=== PATIENT | male | born 1950 | race Caucasian/White ===

== ENCOUNTER 2016-05-02 16:43 | Emergency (ER) | payer SELFPAY ==
[~2016-05-02] VITALS: Ht 182.9 cm; Wt 77.1 kg
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
[2016-05-02] MEDS ORDERED: OXYCODONE/APAP 5/325 TABLET. PO ONE (17:45)
[2016-05-02] MEDS ORDERED: ORPHENADRINE CITRATE 60 MG/2 ML VIAL. IM ONE (17:45)
[2016-05-02] MEDS ORDERED: OXYC-323 PO (18:36)
[2016-05-02] MEDS ORDERED: CYCL10TA2 PO (18:36)
[2016-05-02 19:01] VITALS: BP 150/80
--- NOTE | 2016-05-03 06:53 | EKG ---
[facility] [address] [place] [address] Test Date: 2016-05-02 Test Time: 16:57:22 Pat Name: MICHAEL WHITTEN Department: Room: Gender: M Travel Director: : 1950 Requested By: PARTH HANSON Order Number: [id number] Reading MD: Measurements Intervals [place] Rate: 76 P: 32 DC: 156 QRS: 11 QRSD: 98 T: 42 QT: 362 QTc: 411 Interpretive Statements SINUS RHYTHM QRS(T) CONTOUR ABNORMALITY CONSISTENT WITH INFERIOR INFARCT PROBABLY OLD ABNORMAL ECG RI6.01 No previous ECG available for comparison
== END 2016-05-02 19:00 | disposition home or self-care (01) ==
LOC: ER 16:43
DX: M54.5 Low back pain (principal); M19.90 Unspecified osteoarthritis, unspecified site; G89.29 Other chronic pain; E78.00 Pure hypercholesterolemia, unspecified; M41.9 Scoliosis, unspecified
CPT/HCPCS: 93005; 96372; 99283; J2360; 90471

== ENCOUNTER 2016-05-23 14:16 | Emergency (ER) | payer SELFPAY ==
[~2016-05-23] VITALS: Ht 182.9 cm; Wt 79.4 kg
[~2016-05-23 14:16] MED LIST: CYCL10TA2 PO; OXYC-323 PO
[2016-05-23 14:53] LABS: BASO # 0.1 x10^3/uL (0.0-0.2); BASO % 1 % (0-3); EOS % 2 % (0-3); HEMATOCRIT 39.8 % (39.0-53.0); HEMOGLOBIN 13.8 g/dL (13.0-17.5); LYMPH # 1.5 x10^3/uL (1.0-4.8); LYMPH % 14 % (24-48); MEAN CORPUSCULAR HEMOGLOBIN 33 pg (25-35); MEAN CORPUSCULAR HGB CONC 35 g/dL (31-37); MEAN CORPUSCULAR VOLUME 96 fL (79-100); MONO % 7 % (0-9); NEUT % 77 % (31-73); PLATELET COUNT 204 x10^3/uL (140-400); RED BLOOD COUNT 4.14 x10^6/uL (4.30-5.70); RED CELL DISTRIBUTION WIDTH 13.3 % (11.5-14.5); WHITE BLOOD COUNT 10.7 x10^3/uL (4.0-11.0)
[2016-05-23 15:02] LABS: CALCIUM 8.5 mg/dL (8.5-10.1); GFR 75.5; POTASSIUM 3.8 mmol/L (3.5-5.1)
[2016-05-23 15:03] LABS: PROTHROMBIN TIME PATIENT 12.9 SEC (11.7-14.0)
[2016-05-23 15:08] LABS: ALBUMIN 3.9 g/dL (3.4-5.0); ALBUMIN/GLOBULIN RATIO 1.6 (1.0-1.7); TOTAL BILIRUBIN 0.5 mg/dL (0.2-1.0); TOTAL PROTEIN 6.3 g/dL (6.4-8.2)
--- NOTE | 2016-05-23 15:29 | RAD ---
Portable chest, 05/23/2016: History: Dizziness, GI tract bleed No previous chest radiographs are available at this time for comparison purposes. A spinal stimulator lead extends into the lower thoracic spinal canal. The heart size and pulmonary vascularity are normal. There is mild linear atelectasis or scarring in the left base. The right lung is clear. There is no evidence of pleural fluid or pneumothorax. There is a mild thoracic scoliosis. IMPRESSION: 1. Mild left basilar linear atelectasis or scarring. 2. Otherwise no acute cardiopulmonary abnormality is detected.
[2016-05-23] MEDS ORDERED: ONDANSETRON PF 4 MG/2 ML VIAL. IV ONE (15:45)
[2016-05-23] MEDS ORDERED: IV NORMAL SALINE 1000ML BAG 1,000 ML IV ONE (15:45)
[2016-05-23] MEDS ORDERED: FENTANYL PF 100 MCG/2 ML VIAL. IV ONE (15:45)
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
[2016-05-23 15:58] LABS: BILIRUBIN,URINE NEGATIVE (NEG); GLUCOSE,URINE NEGATIVE (NEG); NITRITE,URINE NEGATIVE (NEG); PH,URINE 5.5; PROTEIN,URINE NEGATIVE (NEG-TRACE); UROBILINOGEN,URINE 0.2 mg/dL (0.2 mg/dL)
[2016-05-23 16:14] LABS: BACTERIA,URINE 0 /HPF (0-FEW); WBC,URINE OCC /HPF (0-4)
--- NOTE | 2016-05-23 16:19 | RAD ---
Abdomen, 2 views, 05/23/2016: History: Rectal bleeding after colonoscopy A spinal stimulator lead is in place extending into the lower thoracic spinal canal. There is a moderate thoracolumbar scoliosis with multilevel degenerative change. Gas is present in large and small bowel without significant bowel distention. Small scattered nonspecific air-fluid levels are noted, compatible with residual fluid in the colon from the recent colonoscopy. No free air is seen in the abdomen. There is no evidence of organomegaly. Lower pelvic calcifications are probably phleboliths. IMPRESSION: No acute abnormality is detected.
[2016-05-23 16:20] LABS: NEG OBC FOB NEG; POS OBC FOB POS
[2016-05-23 16:55] VITALS: BP 174/97
[2016-05-23] MEDS ORDERED: DOCU-27 PO (17:08)
[2016-05-23] MEDS ORDERED: HYDR-971 PO (17:08)
--- NOTE | 2016-05-24 07:43 | EKG ---
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
== END 2016-05-23 17:47 | disposition home or self-care (01) ==
LOC: ER 14:16 → EDBD 14:16 → ER 17:47
DX: K62.5 Hemorrhage of anus and rectum (principal); E86.0 Dehydration; R31.9 Hematuria, unspecified; M19.90 Unspecified osteoarthritis, unspecified site; J44.9 Chronic obstructive pulmonary disease, unspecified; E78.00 Pure hypercholesterolemia, unspecified; I10 Essential (primary) hypertension; M41.9 Scoliosis, unspecified; M81.0 Age-related osteoporosis without current pathological fracture
CPT/HCPCS: 36415; 71010; 74020; 80053; 81001; 82274; 85027; 85610; 85730; 93005; 96361; 96374; 96375; 99285; J2405; J3010; J7030

== ENCOUNTER 2016-05-26 02:52 | Inpatient (IN) | payer MEDICARE, OTHER ==
[~2016-05-26] VITALS: Ht 182.9 cm; Wt 85.3 kg
[~2016-05-26 02:52] MED LIST changes: +DOCU-27 PO; +HYDR-971 PO
[2016-05-26 03:25] LABS: BASO % 0 % (0-3); EOS % 0 % (0-3); HEMATOCRIT 39.7 % (39.0-53.0); HEMOGLOBIN 13.5 g/dL (13.0-17.5); LYMPH # 0.5 x10^3/uL (1.0-4.8); LYMPH % 4 % (24-48); MEAN CORPUSCULAR HEMOGLOBIN 33 pg (25-35); MEAN CORPUSCULAR HGB CONC 34 g/dL (31-37); MEAN CORPUSCULAR VOLUME 96 fL (79-100); MONO % 7 % (0-9); NEUT % 89 % (31-73); PLATELET COUNT 160 x10^3/uL (140-400); RED BLOOD COUNT 4.14 x10^6/uL (4.30-5.70); RED CELL DISTRIBUTION WIDTH 13.2 % (11.5-14.5); WHITE BLOOD COUNT 14.4 x10^3/uL (4.0-11.0)
[2016-05-26] MEDS ORDERED: IV NORMAL SALINE 1000ML BAG 1,000 ML IV SCH (03:30)
--- NOTE | 2016-05-26 03:36 | RAD ---
INDICATION: Left facial droop with slurred speech COMPARISON: None TECHNIQUE: Axial CT images obtained through the head. One or more of the following individualized dose reduction techniques were utilized for this examination: 1. Automated exposure control; 2. Adjustment of the mA and/or kV according to patient size; 3. Use of iterative reconstruction technique. FINDINGS: No midline shift. Ventricles and sulci are prominent. Basilar cistern patent. No gross hemorrhage or intracranial mass. No displaced skull fracture. Regions of low attenuation of the white matter. Encephalomalacia in the left temporal region. Could be from old infarct. IMPRESSION: No acute intracranial hemorrhage. Regions of low attenuation of the white matter. Nonspecific but frequently secondary to small vessel ischemic disease. MRI could better evaluate for acuity of this finding. Region low-attenuation within the left temporal region. There is some suspected associated volume loss of suspect that this is secondary to an old infarct rather than acute. Report called to the ER at 3:27 a.m. on date of exam Electronically signed by: Percy Camilo (May 26, 2016 03:34:41)
[2016-05-26 03:38] LABS: CALCIUM 8.8 mg/dL (8.5-10.1); CREATININE 1.5 mg/dL (0.7-1.3); GFR 47.3; INR 1.3 (0.8-1.1); POTASSIUM 3.4 mmol/L (3.5-5.1); PROTHROMBIN TIME PATIENT 15.2 SEC (11.7-14.0)
[2016-05-26 03:45] LABS: ALBUMIN 3.4 g/dL (3.4-5.0); TOTAL BILIRUBIN 1.8 mg/dL (0.2-1.0); TOTAL PROTEIN 6.9 g/dL (6.4-8.2)
[2016-05-26] MEDS ORDERED: IBUPROFEN 400 MG TABLET. PO ONE (04:00)
[2016-05-26] MEDS ORDERED: ONDANSETRON PF 4 MG/2 ML VIAL. IV ONE (04:00)
[2016-05-26] MEDS ORDERED: ACETAMINOPHEN 325 MG TABLET. PO ONE (04:00)
[2016-05-26 04:12] LABS: BILIRUBIN,URINE SMALL (NEG); GLUCOSE,URINE NEGATIVE (NEG); NITRITE,URINE POSITIVE (NEG); PROTEIN,URINE 100 mg/dL (NEG-TRACE)
[2016-05-26 04:18] LABS: BARBITURATES NEG (NEG); BENZODIAZEPINES NEG (NEG); CANNABINOIDS NEG (NEG); COCAINE NEG (NEG); METHADONE NEG (NEG); OPIATES NEG (NEG); PHENCYCLIDINE NEG (NEG)
[2016-05-26 04:26] LABS: ETHANOL, URINE NEG (NEG)
[2016-05-26 04:54] LABS: BACTERIA,URINE MANY /HPF (0-FEW); RBC,URINE OCC /HPF (0-2); SQUAMOUS EPITHELIAL CELL,UR OCC /LPF; WBC,URINE >40 /HPF (0-4)
--- NOTE | 2016-05-26 05:03 | EKG ---
[facility] [address] [place] [address] Test Date: 2016-05-26 Test Time: 03:11:11 Pat Name: MICHAEL WHITTEN Department: Room: Gender: M Sr. 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
[2016-05-26 05:24] LABS: PLT ESTIMATE ADEQUATE (ADEQUATE)
[2016-05-26 05:25] LABS: TOXIC GRANULATION SLIGHT
[2016-05-26] MEDS ORDERED: ONDANSETRON PF 4 MG/2 ML VIAL. IV PRN ×2 (05:30→10:30)
[2016-05-26] MEDS ORDERED: ACETAMINOPHEN 325 MG TABLET. PO PRN ×3 (05:30→10:30)
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
[2016-05-26] MEDS ORDERED: CEFTRIAXONE 1GM IVPB FOR OMNI 50 ML IV ONE (06:30)
[2016-05-26 07:00] VITALS: BP 112/71
--- NOTE | 2016-05-26 08:19 | RAD ---
PORTABLE CHEST 1V Clinical Indication: fever Comparison: May 23, 2016. Technique: Portable upright AP view of the chest is obtained. Findings: Linear opacity is redemonstrated in the left lower lobe laterally, most suggestive of atelectasis. No interval consolidation is seen. Mild blunting of the left costophrenic angle may represent trace pleural fluid. No pneumothorax is present. Cardiomediastinal silhouette remains within normal limits of size. Visualized osseous structures and overlying soft tissues demonstrate no acute interval change. IMPRESSION: No interval consolidation. Minimal left basilar atelectasis, with trace pleural fluid suggested.
--- NOTE | 2016-05-26 09:56 | ACF ---
Admit Criteria Forms Admit Criteria Forms Admit Criteria Forms DEHYDRATION Clinical Indications for Admission to Inpatient Care (Place 'X' for any and all applicable criteria): Admission is indicated for ANY ONE of the following (1)(2)(3)(4)(5): [X]I. Inpatient admission required rather than observation care (see Dehydration: Observation Care guideline as appropriate) because of ANY ONE of the following: [ ]a) Vomiting that is severe or persistent [ ]b) Severe electrolyte abnormalities requiring inpatient care [ ]c) Hemodynamic instability [ ]d) IV fluid to replace significant ongoing losses (greater than 3 L/m2 per day (10) (11) [ ]e) Parenteral nutrition regimen that must be implemented on inpatient basis [X]f) Other condition,treatment or monitoring requiring inpatient admission [ ]II. Serious cause for dehydration requiring acute hospitalization (eg, bowel obstruction, increased intracranial pressure, infectious cause) Extended stay beyond goal length of stay may be needed for(1)(3 )(4)(17): [ ]a) Chronic severe dehydration [ ]b) Persistent vital sign changes, severe electrolyte imbalance, or diagnosed cause of dehydration that requires continued hospitalization (eg, bowel obstruction, increased intracranial pressure) [ ]c) Older patients (65 years or older) [ ]d) Severe comorbid illness (eg, renal failure, heart failure, poorly controlled diabetes) The original [employer] content created by [employer] has been revised. The portions of the content which have been revised are identified through the use of italic text or in bold, and [facility] has neither reviewed nor approved the modified material. All other unmodified content is copyright [employer]. Please see references footnoted in the original [employer] edition 2016 ILENE CLINE May 26, 2016 09:56
--- NOTE | 2016-05-26 10:21 | PDOC1 ---
History and Physical Family History Family History: Other Social History Smoke: No ALCOHOL: none Drugs: None Current Problem List Problem List Problems Medical Problems: (1) Acute renal injury Status: Acute (2) Dehydration Status: Acute (3) Weakness Status: Acute Current Medications Current Medications Current Medications Medications (Trade) Dose Ordered Sig/Hilary Start Time Stop Time Status Last Admin Dose Admin Acetaminophen (Tylenol) 650 mg 1X ONCE 05/26/16 04:00 05/26/16 04:01 DC 05/26/16 03:44 650 MG Acetaminophen 650 mg 650 mg PRN Q4HRS PRN 05/26/16 05:30 05/27/16 05:29 Ceftriaxone Sodium 1 gm/ Sodium Chloride 50 ml @ 100 mls/hr Q24H 05/27/16 07:00 Ceftriaxone Sodium (Rocephin 1gm Ivpb For Omni) 50 ml @ 100 mls/hr 1X ONCE 05/26/16 06:30 05/26/16 06:59 DC Ibuprofen (Motrin) 400 mg 1X ONCE 05/26/16 04:00 05/26/16 04:01 DC 05/26/16 03:44 400 MG Ondansetron HCl (Zofran) 4 mg 1X ONCE 05/26/16 04:00 05/26/16 04:01 DC 05/26/16 03:44 4 MG Ondansetron HCl 4 mg 4 mg PRN Q8HRS PRN 05/26/16 05:30 05/27/16 05:29 Sodium Chloride (Iv Sodium Chloride 0.9% 1000ml Bag) 1,000 ml @ 125 mls/hr Q8H 05/26/16 05:16 05/27/16 05:15 Allergies Allergies Allergies Coded Allergies Type Severity Reaction Last Updated Verified No Known Drug Allergies 05/02/16 No ROS Review of System CONSTITUTIONAL: No fever or chills EYES: No recent changes SKIN: No rash or itching CARDIOVASCULAR: No chest pain, syncope, palpitations, or edema RESPIRATORY: No SOB or cough not able to obtain due to communication problems Physical Exam Physical Exam GEN.: No apparent distress. Alert and oriented HEENT: Head is normocephalic, atraumatic NECK: Supple. LUNGS: Clear to auscultation. HEART: RRR, S1, S2 present. Peripheral pulses intact ABDOMEN: Soft, nontender. Positive bowel sounds. EXTREMITIES: Without any cyanosis. NEUROLOGIC: Normal speech, normal tone PSYCHIATRIC: Normal affect, normal mood. SKIN: No ulcerations Vitals Vitals Vital Signs Date Time Temp Pulse Resp B/P Pulse Ox O2 Delivery O2 Flow Rate FiO2 05/26/16 06:00 90 116/72 05/26/16 03:07 101.4 26 93 Room Air 101.4 Labs Labs Laboratory Tests Test 05/26/16 03:10 05/26/16 04:00 White Blood Count 14.4x10^3/uL (4.0-11.0) Red Blood Count 4.14x10^6/uL (4.30-5.70) Hemoglobin 13.5g/dL (13.0-17.5) Hematocrit 39.7% (39.0-53.0) Mean Corpuscular Volume 96fL (79-100) Mean Corpuscular Hemoglobin 33pg (25-35) Mean Corpuscular Hemoglobin Concent 34g/dL (31-37) Red Cell Distribution Width 13.2% (11.5-14.5) Platelet Count 160x10^3/uL (140-400) Neutrophils (%) (Auto) 89% (31-73) Lymphocytes (%) (Auto) 4% (24-48) Monocytes (%) (Auto) 7% (0-9) Eosinophils (%) (Auto) 0% (0-3) Basophils (%) (Auto) 0% (0-3) Neutrophils # (Auto) 12.8x10^3uL (1.8-7.7) Lymphocytes # (Auto) 0.5x10^3/uL (1.0-4.8) Monocytes # (Auto) 1.0x10^3/uL (0.0-1.1) Eosinophils # (Auto) 0.0x10^3/uL (0.0-0.7) Basophils # (Auto) 0.0x10^3/uL (0.0-0.2) Segmented Neutrophils % 77% (35-66) Band Neutrophils % 16% (0-9) Lymphocytes % 1% (24-48) Monocytes % 5% (0-10) Metamyelocytes % 1% (0-0) Toxic Granulation Slight Platelet Estimate Adequate (ADEQUATE) Prothrombin Time 15.2SEC (11.7-14.0) Prothromb Time International Ratio 1.3 (0.8-1.1) Sodium Level 134mmol/L (136-145) Potassium Level 3.4mmol/L (3.5-5.1) Chloride Level 96mmol/L (98-107) Carbon Dioxide Level 25mmol/L (21-32) Anion Gap 13 (6-14) Blood Urea Nitrogen 32mg/dL (8-26) Creatinine 1.5mg/dL (0.7-1.3) Estimated GFR (Cockcroft-Gault) 47.3 BUN/Creatinine Ratio 21 (6-20) Glucose Level 125mg/dL (70-99) Calcium Level 8.8mg/dL (8.5-10.1) Total Bilirubin 1.8mg/dL (0.2-1.0) Aspartate Amino Transf (AST/SGOT) 24U/L (15-37) Alanine Aminotransferase (ALT/SGPT) 26U/L (16-63) Alkaline Phosphatase 99U/L (46-116) Troponin I Quantitative < 0.017ng/mL (0.000-0.055) Total Protein 6.9g/dL (6.4-8.2) Albumin 3.4g/dL (3.4-5.0) Albumin/Globulin Ratio 1.0 (1.0-1.7) Lipase 71U/L (73-393) Urine Collection Type Unknown Urine Color Lanny Urine Clarity Cloudy Urine pH 6.0 Urine Specific [place] >=1.030 Urine Protein 100mg/dL (NEG-TRACE) Urine Glucose (UA) Negativemg/dL (NEG) Urine Ketones (Stick) Tracemg/dL (NEG) Urine Blood Large (NEG) Urine Nitrite Positive (NEG) Urine Bilirubin Small (NEG) Urine Urobilinogen Dipstick 1.0mg/dL (0.2 mg/dL) Urine Leukocyte Esterase Moderate (NEG) Urine RBC Occ/HPF (0-2) Urine WBC >40/HPF (0-4) Urine Squamous Epithelial Cells Occ/LPF Urine Bacteria Many/HPF (0-FEW) Urine Hyaline Casts Few/HPF Urine Mucus Mod/LPF Urine Opiates Screen Neg (NEG) Urine Methadone Screen Neg (NEG) Urine Barbiturates Neg (NEG) Urine Phencyclidine Screen Neg (NEG) Urine Amphetamine/Methamphetamine Neg (NEG) Urine Benzodiazepines Screen Neg (NEG) Urine Cocaine Screen Neg (NEG) Urine Cannabinoids Screen Neg (NEG) Urine Ethyl Alcohol Neg (NEG) Laboratory Tests Test 05/26/16 03:10 05/26/16 04:00 White Blood Count 14.4x10^3/uL (4.0-11.0) Red Blood Count 4.14x10^6/uL (4.30-5.70) Hemoglobin 13.5g/dL (13.0-17.5) Hematocrit 39.7% (39.0-53.0) Mean Corpuscular Volume 96fL (79-100) Mean Corpuscular Hemoglobin 33pg (25-35) Mean Corpuscular Hemoglobin Concent 34g/dL (31-37) Red Cell Distribution Width 13.2% (11.5-14.5) Platelet Count 160x10^3/uL (140-400) Neutrophils (%) (Auto) 89% (31-73) Lymphocytes (%) (Auto) 4% (24-48) Monocytes (%) (Auto) 7% (0-9) Eosinophils (%) (Auto) 0% (0-3) Basophils (%) (Auto) 0% (0-3) Neutrophils # (Auto) 12.8x10^3uL (1.8-7.7) Lymphocytes # (Auto) 0.5x10^3/uL (1.0-4.8) Monocytes # (Auto) 1.0x10^3/uL (0.0-1.1) Eosinophils # (Auto) 0.0x10^3/uL (0.0-0.7) Basophils # (Auto) 0.0x10^3/uL (0.0-0.2) Segmented Neutrophils % 77% (35-66) Band Neutrophils % 16% (0-9) Lymphocytes % 1% (24-48) Monocytes % 5% (0-10) Metamyelocytes % 1% (0-0) Toxic Granulation Slight Platelet Estimate Adequate (ADEQUATE) Prothrombin Time 15.2SEC (11.7-14.0) Prothromb Time International Ratio 1.3 (0.8-1.1) Sodium Level 134mmol/L (136-145) Potassium Level 3.4mmol/L (3.5-5.1) Chloride Level 96mmol/L (98-107) Carbon Dioxide Level 25mmol/L (21-32) Anion Gap 13 (6-14) Blood Urea Nitrogen 32mg/dL (8-26) Creatinine 1.5mg/dL (0.7-1.3) Estimated GFR (Cockcroft-Gault) 47.3 BUN/Creatinine Ratio 21 (6-20) Glucose Level 125mg/dL (70-99) Calcium Level 8.8mg/dL (8.5-10.1) Total Bilirubin 1.8mg/dL (0.2-1.0) Aspartate Amino Transf (AST/SGOT) 24U/L (15-37) Alanine Aminotransferase (ALT/SGPT) 26U/L (16-63) Alkaline Phosphatase 99U/L (46-116) Troponin I Quantitative < 0.017ng/mL (0.000-0.055) Total Protein 6.9g/dL (6.4-8.2) Albumin 3.4g/dL (3.4-5.0) Albumin/Globulin Ratio 1.0 (1.0-1.7) Lipase 71U/L (73-393) Urine Collection Type Unknown Urine Color Lanny Urine Clarity Cloudy Urine pH 6.0 Urine Specific [place] >=1.030 Urine Protein 100mg/dL (NEG-TRACE) Urine Glucose (UA) Negativemg/dL (NEG) Urine Ketones (Stick) Tracemg/dL (NEG) Urine Blood Large (NEG) Urine Nitrite Positive (NEG) Urine Bilirubin Small (NEG) Urine Urobilinogen Dipstick 1.0mg/dL (0.2 mg/dL) Urine Leukocyte Esterase Moderate (NEG) Urine RBC Occ/HPF (0-2) Urine WBC >40/HPF (0-4) Urine Squamous Epithelial Cells Occ/LPF Urine Bacteria Many/HPF (0-FEW) Urine Hyaline Casts Few/HPF Urine Mucus Mod/LPF Urine Opiates Screen Neg (NEG) Urine Methadone Screen Neg (NEG) Urine Barbiturates Neg (NEG) Urine Phencyclidine Screen Neg (NEG) Urine Amphetamine/Methamphetamine Neg (NEG) Urine Benzodiazepines Screen Neg (NEG) Urine Cocaine Screen Neg (NEG) Urine Cannabinoids Screen Neg (NEG) Urine Ethyl Alcohol Neg (NEG) VTE Prophylaxis Ordered VTE Prophylaxis Devices: Yes VTE Pharmacological Prophylaxi: Contraindicated EVELIN LANDA MD May 26, 2016 10:21
[2016-05-26] MEDS: IV NORMAL SALINE 1000ML BAG 1,000 ML IV SCH ×3 (10:29→21:40)
[2016-05-26] MEDS ORDERED: ALBUTEROL SULFATE 2.5 MG/3 ML NEBU. NEB PRN (10:30)
[2016-05-26] MEDS ORDERED: hydrALAZINE 20 MG/ML VIAL. IVP PRN (10:30)
[2016-05-26 11:00] VITALS: BP 109/67
[2016-05-26] MEDS ORDERED: IOHEXOL 240 MG/ML 50ML VIAL. PO ONE (11:00)
[2016-05-26] MEDS ORDERED: CONTRAST GIVEN MC PRN (11:15)
[2016-05-26 15:07] VITALS: BP 159/93
[2016-05-26] MEDS ORDERED: ATEN25TA PO (18:06)
[2016-05-26] MEDS ORDERED: LOVA20TA2 PO (18:06)
[2016-05-26] MEDS ORDERED: SENN8.6T99 PO (18:06)
[2016-05-26] MEDS ORDERED: IBUP-1007 PO (18:06)
[2016-05-26] MEDS ORDERED: CHOL10003 PO (18:06)
[2016-05-26] MEDS ORDERED: TAMS0.4C2 PO (18:06)
[2016-05-26] MEDS ORDERED: LAMO150T PO (18:06)
[2016-05-26] MEDS ORDERED: CYCL5TAB PO (18:06)
[2016-05-26] MEDS ORDERED: ERGO500012 PO (18:06)
[2016-05-26] MEDS: HYDROCODONE/APAP 5/325MG TABLET. PO PRN (18:19)
[2016-05-26] MEDS ORDERED: LEVOFLOXACIN PER PHARMACY MC PRN (19:30)
[2016-05-26 19:59] VITALS: BP 102/73
[2016-05-26] MEDS: CHOLECALCIFEROL (VITAMIN D3) 1,000 UNIT TABLET PO SCH (20:18)
[2016-05-26] MEDS: ATORVASTATIN CALCIUM 10 MG TABLET. PO SCH (20:18)
[2016-05-26] MEDS: lamoTRIgine 25 MG TABLET. PO SCH (20:19)
[2016-05-26] MEDS: lamoTRIgine 100 MG TABLET. PO SCH (20:19)
[2016-05-26] MEDS: TAMSULOSIN 0.4 MG CAP.ER.24H. PO SCH (20:20)
[2016-05-26] MEDS: ATENOLOL 25 MG TABLET. PO SCH (20:20)
[2016-05-26] MEDS: CYCLOBENZAPRINE 10 MG TABLET. PO SCH (20:21)
[2016-05-26] MEDS: METRONIDAZOLE 500mg PREMIX 100 ML IV SCH (21:40)
[2016-05-26 22:59] VITALS: BP 129/76
[2016-05-27] MEDS: HYDROCODONE/APAP 5/325MG TABLET. PO PRN ×4 (00:24→20:51)
[2016-05-27 03:59] VITALS: BP 137/80
[2016-05-27] MEDS: METRONIDAZOLE 500mg PREMIX 100 ML IV SCH ×3 (05:19→22:46)
[2016-05-27 05:59] LABS: BASO % 0 % (0-3); EOS % 0 % (0-3); HEMATOCRIT 34.7 % (39.0-53.0); HEMOGLOBIN 12.1 g/dL (13.0-17.5); LYMPH # 0.5 x10^3/uL (1.0-4.8); LYMPH % 4 % (24-48); MEAN CORPUSCULAR HEMOGLOBIN 33 pg (25-35); MEAN CORPUSCULAR HGB CONC 35 g/dL (31-37); MEAN CORPUSCULAR VOLUME 95 fL (79-100); MONO % 8 % (0-9); NEUT % 87 % (31-73); PLATELET COUNT 157 x10^3/uL (140-400); RED BLOOD COUNT 3.68 x10^6/uL (4.30-5.70); WHITE BLOOD COUNT 10.9 x10^3/uL (4.0-11.0)
[2016-05-27 06:38] LABS: CALCIUM 8.2 mg/dL (8.5-10.1); CREATININE 1.1 mg/dL (0.7-1.3); GFR 67.6
[2016-05-27 06:41] LABS: POTASSIUM 2.9 mmol/L (3.5-5.1)
[2016-05-27 07:00] VITALS: BP 133/82
[2016-05-27] MEDS ORDERED: CEFTRIAXONE SODIUM 1 GM in IV NORMAL SALINE 50ML 50 ML IV SCH (07:00)
[2016-05-27] MEDS: POTASSIUM CHLORIDE 10MEQ 100 ML IV SCH ×4 (08:02→13:28)
[2016-05-27] MEDS: lamoTRIgine 25 MG TABLET. PO SCH ×2 (08:58→20:50)
[2016-05-27] MEDS: TAMSULOSIN 0.4 MG CAP.ER.24H. PO SCH (08:58)
[2016-05-27] MEDS: CHOLECALCIFEROL (VITAMIN D3) 1,000 UNIT TABLET PO SCH (08:59)
[2016-05-27] MEDS: lamoTRIgine 100 MG TABLET. PO SCH ×2 (08:59→20:50)
[2016-05-27] MEDS: CYCLOBENZAPRINE 10 MG TABLET. PO SCH ×2 (08:59→20:51)
[2016-05-27] MEDS: ATENOLOL 25 MG TABLET. PO SCH (08:59)
--- NOTE | 2016-05-27 09:43 | RAD ---
EXAM: CT abdomen and pelvis without contrast. HISTORY: 65-year-old male with generalized abdominal pain, fever, nausea, vomiting and diarrhea. TECHNIQUE: Computed tomographic images of the abdomen and pelvis without the use of intravenous contrast. Approximately 50 mL of Omni 240 oral contrast was administered. Multiplanar reformatting was performed. One or more of the following individualized dose reduction techniques were utilized for this examination: 1. Automated exposure control 2. Adjustment of the mA and/or kV according to patient size 3. Use of iterative reconstruction technique COMPARISON: None. FINDINGS: Bibasilar atelectasis is seen within the visualized lung bases. Detailed evaluation of intra-abdominal organs and vascular structures is limited secondary to lack of IV contrast. Within this limitation, the liver, gallbladder, spleen, pancreas, adrenal glands and kidneys demonstrate no acute finding. GI tract demonstrates no dilated bowel loops to suggest obstruction. Oral contrast is demonstrated through the level of the cecum. The appendix is normal in caliber in the right lower quadrant. There are distal colonic diverticula present, with mild bowel wall thickening suggested involving the sigmoid colon and rectum. Some adjacent soft tissue stranding is present about the rectum. No extraluminal air or focal fluid collections are seen. No intra-abdominal pelvic free fluid, free air or significant lymphadenopathy is seen. The urinary bladder is unremarkable. Prostate is enlarged. Aorta is normal in caliber with atherosclerotic calcification present. Overlying soft tissues and visualized osseous structures demonstrate no acute or suspicious finding. Degenerative changes are present throughout the spine. IMPRESSION: Bowel wall thickening involving the sigmoid colon and rectum, may represent colitis or less likely diverticulitis.
[2016-05-27 11:00] VITALS: BP 146/77
--- NOTE | 2016-05-27 11:43 | PDOC ---
PROGRESS NOTES Chief Complaint Chief Complaint cc: diarrhea. A/P Fever, abdominal pain : suspect colitis, continue to have temp spikes, on Levaquin and Flagyl, consult GI. Blood cx ordered. BHUPINDER POA due to dehydration: improving on IV hydration, consult GI, UTI: POA, on Levaquin follow cx. Hypokalemia: replacing. HTN stable. continue current medications, PRN hydralazine Chronic Pain Expressive aphasia DVT prophylaxis. Vitals Vitals Vital Signs Date Time Temp Pulse Resp B/P Pulse Ox O2 Delivery O2 Flow Rate FiO2 05/27/16 08:59 97 137/80 05/27/16 07:00 97.9 22 97.9 05/27/16 03:59 95 Room Air Physical Exam General: Alert, Oriented X3 Heart: Normal S1 Lungs: Clear Abdomen: Normal bowel sounds, Soft Labs LABS Laboratory Tests Test 05/27/16 05:00 White Blood Count 10.9x10^3/uL (4.0-11.0) Red Blood Count 3.68x10^6/uL (4.30-5.70) Hemoglobin 12.1g/dL (13.0-17.5) Hematocrit 34.7% (39.0-53.0) Mean Corpuscular Volume 95fL (79-100) Mean Corpuscular Hemoglobin 33pg (25-35) Mean Corpuscular Hemoglobin Concent 35g/dL (31-37) Red Cell Distribution Width 13.0% (11.5-14.5) Platelet Count 157x10^3/uL (140-400) Neutrophils (%) (Auto) 87% (31-73) Lymphocytes (%) (Auto) 4% (24-48) Monocytes (%) (Auto) 8% (0-9) Eosinophils (%) (Auto) 0% (0-3) Basophils (%) (Auto) 0% (0-3) Neutrophils # (Auto) 9.5x10^3uL (1.8-7.7) Lymphocytes # (Auto) 0.5x10^3/uL (1.0-4.8) Monocytes # (Auto) 0.9x10^3/uL (0.0-1.1) Eosinophils # (Auto) 0.0x10^3/uL (0.0-0.7) Basophils # (Auto) 0.0x10^3/uL (0.0-0.2) Sodium Level 134mmol/L (136-145) Potassium Level 2.9mmol/L (3.5-5.1) Chloride Level 98mmol/L (98-107) Carbon Dioxide Level 20mmol/L (21-32) Anion Gap 16 (6-14) Blood Urea Nitrogen 20mg/dL (8-26) Creatinine 1.1mg/dL (0.7-1.3) Estimated GFR (Cockcroft-Gault) 67.6 Glucose Level 61mg/dL (70-99) Calcium Level 8.2mg/dL (8.5-10.1) Assessment and Plan Assessmemt and Plan Problems Medical Problems: (1) Acute renal injury Status: Acute (2) Dehydration Status: Acute (3) Weakness Status: Acute Problems: Comment Review of Relevant I have reviewed the following items lilian (where applicable) has been applied. Labs Laboratory Tests Test 05/26/16 03:10 05/26/16 04:00 05/27/16 05:00 White Blood Count 14.4x10^3/uL (4.0-11.0) 10.9x10^3/uL (4.0-11.0) Red Blood Count 4.14x10^6/uL (4.30-5.70) 3.68x10^6/uL (4.30-5.70) Hemoglobin 13.5g/dL (13.0-17.5) 12.1g/dL (13.0-17.5) Hematocrit 39.7% (39.0-53.0) 34.7% (39.0-53.0) Mean Corpuscular Volume 96fL (79-100) 95fL (79-100) Mean Corpuscular Hemoglobin 33pg (25-35) 33pg (25-35) Mean Corpuscular Hemoglobin Concent 34g/dL (31-37) 35g/dL (31-37) Red Cell Distribution Width 13.2% (11.5-14.5) 13.0% (11.5-14.5) Platelet Count 160x10^3/uL (140-400) 157x10^3/uL (140-400) Neutrophils (%) (Auto) 89% (31-73) 87% (31-73) Lymphocytes (%) (Auto) 4% (24-48) 4% (24-48) Monocytes (%) (Auto) 7% (0-9) 8% (0-9) Eosinophils (%) (Auto) 0% (0-3) 0% (0-3) Basophils (%) (Auto) 0% (0-3) 0% (0-3) Neutrophils # (Auto) 12.8x10^3uL (1.8-7.7) 9.5x10^3uL (1.8-7.7) Lymphocytes # (Auto) 0.5x10^3/uL (1.0-4.8) 0.5x10^3/uL (1.0-4.8) Monocytes # (Auto) 1.0x10^3/uL (0.0-1.1) 0.9x10^3/uL (0.0-1.1) Eosinophils # (Auto) 0.0x10^3/uL (0.0-0.7) 0.0x10^3/uL (0.0-0.7) Basophils # (Auto) 0.0x10^3/uL (0.0-0.2) 0.0x10^3/uL (0.0-0.2) Segmented Neutrophils % 77% (35-66) Band Neutrophils % 16% (0-9) Lymphocytes % 1% (24-48) Monocytes % 5% (0-10) Metamyelocytes % 1% (0-0) Toxic Granulation Slight Platelet Estimate Adequate (ADEQUATE) Prothrombin Time 15.2SEC (11.7-14.0) Prothromb Time International Ratio 1.3 (0.8-1.1) Sodium Level 134mmol/L (136-145) 134mmol/L (136-145) Potassium Level 3.4mmol/L (3.5-5.1) 2.9mmol/L (3.5-5.1) Chloride Level 96mmol/L (98-107) 98mmol/L (98-107) Carbon Dioxide Level 25mmol/L (21-32) 20mmol/L (21-32) Anion Gap 13 (6-14) 16 (6-14) Blood Urea Nitrogen 32mg/dL (8-26) 20mg/dL (8-26) Creatinine 1.5mg/dL (0.7-1.3) 1.1mg/dL (0.7-1.3) Estimated GFR (Cockcroft-Gault) 47.3 67.6 BUN/Creatinine Ratio 21 (6-20) Glucose Level 125mg/dL (70-99) 61mg/dL (70-99) Calcium Level 8.8mg/dL (8.5-10.1) 8.2mg/dL (8.5-10.1) Total Bilirubin 1.8mg/dL (0.2-1.0) Aspartate Amino Transf (AST/SGOT) 24U/L (15-37) Alanine Aminotransferase (ALT/SGPT) 26U/L (16-63) Alkaline Phosphatase 99U/L (46-116) Troponin I Quantitative < 0.017ng/mL (0.000-0.055) Total Protein 6.9g/dL (6.4-8.2) Albumin 3.4g/dL (3.4-5.0) Albumin/Globulin Ratio 1.0 (1.0-1.7) Lipase 71U/L (73-393) Urine Collection Type Unknown Urine Color Lanny Urine Clarity Cloudy Urine pH 6.0 Urine Specific [place] >=1.030 Urine Protein 100mg/dL (NEG-TRACE) Urine Glucose (UA) Negativemg/dL (NEG) Urine Ketones (Stick) Tracemg/dL (NEG) Urine Blood Large (NEG) Urine Nitrite Positive (NEG) Urine Bilirubin Small (NEG) Urine Urobilinogen Dipstick 1.0mg/dL (0.2 mg/dL) Urine Leukocyte Esterase Moderate (NEG) Urine RBC Occ/HPF (0-2) Urine WBC >40/HPF (0-4) Urine Squamous Epithelial Cells Occ/LPF Urine Bacteria Many/HPF (0-FEW) Urine Hyaline Casts Few/HPF Urine Mucus Mod/LPF Urine Opiates Screen Neg (NEG) Urine Methadone Screen Neg (NEG) Urine Barbiturates Neg (NEG) Urine Phencyclidine Screen Neg (NEG) Urine Amphetamine/Methamphetamine Neg (NEG) Urine Benzodiazepines Screen Neg (NEG) Urine Cocaine Screen Neg (NEG) Urine Cannabinoids Screen Neg (NEG) Urine Ethyl Alcohol Neg (NEG) Laboratory Tests Test 4/16/17 05:00 White Blood Count 10.9x10^3/uL (4.0-11.0) Red Blood Count 3.68x10^6/uL (4.30-5.70) Hemoglobin 12.1g/dL (13.0-17.5) Hematocrit 34.7% (39.0-53.0) Mean Corpuscular Volume 95fL (79-100) Mean Corpuscular Hemoglobin 33pg (25-35) Mean Corpuscular Hemoglobin Concent 35g/dL (31-37) Red Cell Distribution Width 13.0% (11.5-14.5) Platelet Count 157x10^3/uL (140-400) Neutrophils (%) (Auto) 87% (31-73) Lymphocytes (%) (Auto) 4% (24-48) Monocytes (%) (Auto) 8% (0-9) Eosinophils (%) (Auto) 0% (0-3) Basophils (%) (Auto) 0% (0-3) Neutrophils # (Auto) 9.5x10^3uL (1.8-7.7) Lymphocytes # (Auto) 0.5x10^3/uL (1.0-4.8) Monocytes # (Auto) 0.9x10^3/uL (0.0-1.1) Eosinophils # (Auto) 0.0x10^3/uL (0.0-0.7) Basophils # (Auto) 0.0x10^3/uL (0.0-0.2) Sodium Level 134mmol/L (136-145) Potassium Level 2.9mmol/L (3.5-5.1) Chloride Level 98mmol/L (98-107) Carbon Dioxide Level 20mmol/L (21-32) Anion Gap 16 (6-14) Blood Urea Nitrogen 20mg/dL (8-26) Creatinine 1.1mg/dL (0.7-1.3) Estimated GFR (Cockcroft-Gault) 67.6 Glucose Level 61mg/dL (70-99) Calcium Level 8.2mg/dL (8.5-10.1) Microbiology 05/26/16 Blood Culture - Preliminary, Resulted NO GROWTH AFTER 1 DAY Medications Current Medications Sodium Chloride (Iv Sodium Chloride 0.9% 1000ml Bag) 1,000 ml @ 1,000 mls/hr Q1H IV Last administered on 05/26/16 03:44; Start 05/26/16 at 03:30; Stop at 04:29; Status DC Ibuprofen (Motrin) 400 mg 1X ONCE PO Last administered on 05/26/16 03:44; Start 05/26/16 at 04:00; Stop 05/26/16 at 04:01; Status DC Ondansetron HCl (Zofran) 4 mg 1X ONCE IV Last administered on 05/26/16 03:44 ; Start 05/26/16 at 04:00; Stop 05/26/16 at 04:01; Status DC Acetaminophen (Tylenol) 650 mg 1X ONCE PO Last administered on 05/26/16 03:44 ; Start 05/26/16 at 04:00; Stop 05/26/16 at 04:01; Status DC Ondansetron HCl 4 mg 4 mg PRN Q8HRS PRN IV NAUSEA/VOMITING; Start 05/26/16 at 05:30; Stop 05/26/16 at 18:22; Status DC Sodium Chloride (Iv Sodium Chloride 0.9% 1000ml Bag) 1,000 ml @ 125 mls/hr Q8H IV Last administered on 05/26/16 21:40; Start 05/26/16 at 05:16; Stop at 05:15; Status DC Acetaminophen 650 mg 650 mg PRN Q4HRS PRN PO FEVER; Start 05/26/16 at 05:30; Stop 05/26/16 at 18:22; Status DC Ceftriaxone Sodium 1 gm/ Sodium Chloride 50 ml @ 100 mls/hr Q24H IV Last administered on 05/27/16 06:20; Start 05/27/16 at 07:00 Ceftriaxone Sodium (Rocephin 1gm Ivpb For Omni) 50 ml @ 100 mls/hr 1X ONCE IV Last administered on 05/26/16 10:30; Start 05/26/16 at 06:30; Stop 05/26/16 at 06:59; Status DC Acetaminophen (Tylenol) 325 mg PRN Q6HRS PRN PO MILD PAIN / TEMP; Start at 10:30; Stop 05/26/16 at 10:30; Status DC Acetaminophen/ Hydrocodone Bitart (Lortab 5/325) 1 tab PRN Q6HRS PRN PO MODERATE TO SEVERE PAIN Last administered on 05/27/16 08:02; Start 05/26/16 at 10:30 Hydralazine HCl (Apresoline) 10 mg PRN Q4HRS PRN IVP ELEVATED BP, SEE COMMENTS ; Start 05/26/16 at 10:30 Ondansetron HCl (Zofran) 4 mg PRN Q8HRS PRN IV NAUSEA/VOMITING; Start 05/26/16 at 10:30 Albuterol Sulfate (Ventolin Neb Soln) 2.5 mg PRN Q4HRS PRN NEB SHORTNESS OF BREATH; Start 05/26/16 at 10:30 Acetaminophen (Tylenol) 325 mg PRN Q6HRS PRN PO MILD PAIN / TEMP Last administered on 05/26/16 20:17; Start 05/26/16 at 10:30 Iohexol (Omnipaque 240 Mg/ml) 50 ml 1X ONCE PO ; Start 05/26/16 at 11:00; Stop 05/26/16 at 11:02; Status DC Info (Do NOT chart on this entry -- for MONITORING) 1 each PRN DAILY PRN MC SEE COMMENTS; Start 05/26/16 at 11:15; Stop 05/28/16 at 11:14 Atenolol (Tenormin) 12.5 mg DAILY PO Last administered on 05/27/16 08:59; Start 05/26/16 at 19:00 Vitamin D (Vitamin D3) 1,000 unit DAILY PO Last administered on 05/27/16 08:59 ; Start 05/26/16 at 19:00 Tamsulosin HCl (Flomax) 0.4 mg DAILY PO Last administered on 05/27/16 08:58; Start 05/26/16 at 19:00 Cyclobenzaprine HCl (Flexeril) 5 mg BID PO Last administered on 05/27/16 08:59 ; Start 05/26/16 at 21:00 Lamotrigine (LaMICtal) 100 mg BID PO Last administered on 05/27/16 08:59; Start 05/26/16 at 21:00 Atorvastatin Calcium (Lipitor) 5 mg QHS PO Last administered on 05/26/16 20:18 ; Start 05/26/16 at 21:00 Lamotrigine (LaMICtal) 50 mg BID PO Last administered on 05/27/16 08:58; Start 05/26/16 at 21:00 Levofloxacin/ Dextrose 1 each 1 each PRN DAILY PRN MC SEE COMMENTS; Start 05/26 at 19:30; Status UNV Metronidazole 100 ml @ 100 mls/hr Q8HRS IV Last administered on 05/27/16 05: 19; Start 05/26/16 at 22:00 Levofloxacin/ Dextrose 100 ml @ 100 mls/hr Q24H IV Last administered on 20:22; Start 05/26/16 at 21:00 Potassium Chloride (KCl Premix 10meq) 100 ml @ 100 mls/hr Q1H IV Last administered on 05/27/16 11:04; Start 05/27/16 at 07:30; Stop 05/27/16 at 11:29 ; Status DC Active Scripts Active Colace (Docusate Sodium) 100 Mg Capsule 1 Cap PO BID Reported Ibuprofen 600 Mg Tablet 600 Mg PO BID Cyclobenzaprine Hcl 5 Mg Tablet 5 Mg PO BID Tamsulosin Hcl 0.4 Mg Cap.er.24h 0.4 Mg PO DAILY Vitamin D2 (Ergocalciferol (Vitamin D2)) 50,000 Unit Capsule 1 Cap PO WEEKLY Atenolol 25 Mg Tablet 12.5 Mg PO DAILY Vitamin D3 (Cholecalciferol (Vitamin D3)) 1,000 Unit Tablet 1 Tab PO DAILY Lamotrigine 150 Mg Tablet 150 Mg PO BID Senokot (Sennosides) 8.6 Mg Tablet 8.6 Mg PO BID Lovastatin 20 Mg Tablet 20 Mg PO HS Vitals/I & O Vital Sign - Last 24 Hours 05/26/16 05/26/16 05/26/16 05/26/16 15:07 19:59 20:00 20:20 Temp 97.4 102.2 97.4 102.2 Pulse 110 108 110 Resp 18 22 B/P 159/93 102/73 159/93 Pulse Ox 94 92 O2 Delivery Room Air Room Air Room Air 05/26/16 05/27/16 05/27/16 05/27/16 22:59 00:24 01:24 03:59 Temp 99.1 98.1 99.1 98.1 Pulse 91 97 Resp 20 18 B/P 129/76 137/80 Pulse Ox 94 94 94 95 O2 Delivery Room Air Room Air Room Air Room Air 05/27/16 05/27/16 07:00 08:59 Temp 97.9 97.9 Pulse 101 97 Resp 22 B/P 133/82 137/80 Intake and Output 05/26/16 05/26/16 05/27/16 15:00 23:00 07:00 Intake Total 360 ml 600 ml Output Total 400 ml 825 ml Balance -40 ml -225 ml EVELIN LANDA MD May 27, 2016 11:43
[2016-05-27] MEDS: IV NORMAL SALINE 1000ML BAG 1,000 ML IV SCH ×2 (11:45→17:25)
[2016-05-27] MEDS ORDERED: ENOXAPARIN 30 MG/0.3 ML SYRINGE. SQ SCH (12:00)
[2016-05-27 15:00] VITALS: BP 124/79
--- NOTE | 2016-05-27 15:59 | PDOC2 ---
CONSULT Date of Consult Date of Consult DATE: 05/27/16 TIME: 15:45 Reason for Consult Reason for Consult: Abdominal pain/diarrhea Referring Physician Referring Physician: Dr. Calvert Source Source: Chart review, Patient History of Present Illness Reason for Visit: 65 y/o male admitted for neurologic changes. During evaluation, a history of N , V and diarrhea elicited. Due to prior stroke and expressive aphasia, not any meaningful history from him. Staff note multiple, small-volume, non-bloody stools. On imaging, mural thickening in sigmoid and rectum. Duration of symptoms unclear. Per staff, had colonoscopy at [facility] 05/16, results unknown nor indication. Says takes stool softeners at home (?), so maybe baseline constipation? Cannot elicit any reliable UGI history, though records hint at possible NSAID ulcer. Habits unclear, though lives at [facility]. He does seem to indicate he feels better since admission and antibiotics. Past Medical History Cardiovascular: HTN, Hyperlipidemia Pulmonary: COPD CENTRAL NERVOUS SYSTEM: CVA, Other (post-traumatic brain issues) Musculoskeletal: Osteoarthritis Past Surgical History Past Surgical History: Other (cervical fusion) Family History Family History Not reliably available from patient. Family History: Other Social History No ALCOHOL: other (though has rasheed erythema, so?) Drugs: None Current Problem List Problem List Problems Medical Problems: (1) Acute renal injury Status: Acute (2) Dehydration Status: Acute (3) Weakness Status: Acute Current Medications Current Medications Current Medications Sodium Chloride (Iv Sodium Chloride 0.9% 1000ml Bag) 1,000 ml @ 1,000 mls/hr Q1H IV Last administered on 05/26/16 03:44; Start 05/26/16 at 03:30; Stop at 04:29; Status DC Ibuprofen (Motrin) 400 mg 1X ONCE PO Last administered on 05/26/16 03:44; Start 05/26/16 at 04:00; Stop 05/26/16 at 04:01; Status DC Ondansetron HCl (Zofran) 4 mg 1X ONCE IV Last administered on 05/26/16 03:44 ; Start 05/26/16 at 04:00; Stop 05/26/16 at 04:01; Status DC Acetaminophen (Tylenol) 650 mg 1X ONCE PO Last administered on 05/26/16 03:44 ; Start 05/26/16 at 04:00; Stop 05/26/16 at 04:01; Status DC Ondansetron HCl 4 mg 4 mg PRN Q8HRS PRN IV NAUSEA/VOMITING; Start 05/26/16 at 05:30; Stop 05/26/16 at 18:22; Status DC Sodium Chloride (Iv Sodium Chloride 0.9% 1000ml Bag) 1,000 ml @ 125 mls/hr Q8H IV Last administered on 05/26/16 21:40; Start 05/26/16 at 05:16; Stop at 05:15; Status DC Acetaminophen 650 mg 650 mg PRN Q4HRS PRN PO FEVER; Start 05/26/16 at 05:30; Stop 05/26/16 at 18:22; Status DC Ceftriaxone Sodium 1 gm/ Sodium Chloride 50 ml @ 100 mls/hr Q24H IV Last administered on 05/27/16 06:20; Start 05/27/16 at 07:00; Stop 05/27/16 at 13:57 ; Status DC Ceftriaxone Sodium (Rocephin 1gm Ivpb For Omni) 50 ml @ 100 mls/hr 1X ONCE IV Last administered on 05/26/16 10:30; Start 05/26/16 at 06:30; Stop 05/26/16 at 06:59; Status DC Acetaminophen (Tylenol) 325 mg PRN Q6HRS PRN PO MILD PAIN / TEMP; Start at 10:30; Stop 05/26/16 at 10:30; Status DC Acetaminophen/ Hydrocodone Bitart (Lortab 5/325) 1 tab PRN Q6HRS PRN PO MODERATE TO SEVERE PAIN Last administered on 05/27/16 15:05; Start 05/26/16 at 10:30 Hydralazine HCl (Apresoline) 10 mg PRN Q4HRS PRN IVP ELEVATED BP, SEE COMMENTS ; Start 05/26/16 at 10:30 Ondansetron HCl (Zofran) 4 mg PRN Q8HRS PRN IV NAUSEA/VOMITING Last administered on 05/27/16 15:05; Start 05/26/16 at 10:30 Albuterol Sulfate (Ventolin Neb Soln) 2.5 mg PRN Q4HRS PRN NEB SHORTNESS OF BREATH; Start 05/26/16 at 10:30 Acetaminophen (Tylenol) 325 mg PRN Q6HRS PRN PO MILD PAIN / TEMP Last administered on 05/26/16 20:17; Start 05/26/16 at 10:30 Iohexol (Omnipaque 240 Mg/ml) 50 ml 1X ONCE PO ; Start 05/26/16 at 11:00; Stop 05/26/16 at 11:02; Status DC Info (Do NOT chart on this entry -- for MONITORING) 1 each PRN DAILY PRN MC SEE COMMENTS; Start 05/26/16 at 11:15; Stop 05/28/16 at 11:14 Atenolol (Tenormin) 12.5 mg DAILY PO Last administered on 05/27/16 08:59; Start 05/26/16 at 19:00 Vitamin D (Vitamin D3) 1,000 unit DAILY PO Last administered on 05/27/16 08:59 ; Start 05/26/16 at 19:00 Tamsulosin HCl (Flomax) 0.4 mg DAILY PO Last administered on 05/27/16 08:58; Start 05/26/16 at 19:00 Cyclobenzaprine HCl (Flexeril) 5 mg BID PO Last administered on 05/27/16 08:59 ; Start 05/26/16 at 21:00 Lamotrigine (LaMICtal) 100 mg BID PO Last administered on 05/27/16 08:59; Start 05/26/16 at 21:00 Atorvastatin Calcium (Lipitor) 5 mg QHS PO Last administered on 05/26/16 20:18 ; Start 05/26/16 at 21:00 Lamotrigine (LaMICtal) 50 mg BID PO Last administered on 05/27/16 08:58; Start 05/26/16 at 21:00 Levofloxacin/ Dextrose 1 each 1 each PRN DAILY PRN MC SEE COMMENTS; Start 05/26 at 19:30; Status UNV Metronidazole 100 ml @ 100 mls/hr Q8HRS IV Last administered on 05/27/16 14: 51; Start 05/26/16 at 22:00 Levofloxacin/ Dextrose 100 ml @ 100 mls/hr Q24H IV Last administered on 20:22; Start 05/26/16 at 21:00 Potassium Chloride 100 ml @ 100 mls/hr Q1H IV Last administered on 05/27/16t 13:28; Start 05/27/16 at 07:30; Stop 05/27/16 at 11:29; Status DC Sodium Chloride (Iv Sodium Chloride 0.9% 1000ml Bag) 1,000 ml @ 75 mls/hr [id number] IV ; Start 05/27/16 at 11:45 Enoxaparin Sodium (Lovenox 30mg Syringe) 30 mg Q24H SQ Last administered on t 14:52; Start 05/27/16 at 12:00; Stop 05/27/16 at 15:10; Status DC Enoxaparin Sodium (Lovenox 40mg Syringe) 40 mg Q24H SQ ; Start 05/28/16 at 15:00 Active Scripts Active Colace (Docusate Sodium) 100 Mg Capsule 1 Cap PO BID Reported Ibuprofen 600 Mg Tablet 600 Mg PO BID Cyclobenzaprine Hcl 5 Mg Tablet 5 Mg PO BID Tamsulosin Hcl 0.4 Mg Cap.er.24h 0.4 Mg PO DAILY Vitamin D2 (Ergocalciferol (Vitamin D2)) 50,000 Unit Capsule 1 Cap PO WEEKLY Atenolol 25 Mg Tablet 12.5 Mg PO DAILY Vitamin D3 (Cholecalciferol (Vitamin D3)) 1,000 Unit Tablet 1 Tab PO DAILY Lamotrigine 150 Mg Tablet 150 Mg PO BID Senokot (Sennosides) 8.6 Mg Tablet 8.6 Mg PO BID Lovastatin 20 Mg Tablet 20 Mg PO HS Allergies Allergies: Coded Allergies: No Known Drug Allergies (Unverified , 05/02/16) ROS Review of System Not reliably obtainable due to neuro status. Physical Exam General: Alert, Oriented X3, Cooperative Lungs: Clear to auscultation Heart: Regular rate, Normal S1, Normal S2, No murmurs Abdomen: Normal bowel sounds, Soft, No tenderness, No hepatosplenomegaly, No masses Extremities: No cyanosis, No edema, Other (palmar erythema) Skin: No significant lesion Neuro: Normal speech (though fluent, expressive aphasia), Strength at 5/5 X4 ext, Normal tone, Sensation intact, Cranial nerves 3-12 NL, Reflexes 2+ Psych/Mental Status: Mental status NL, Mood NL MUSCULOSKELETAL: No deformity, No swelling Vitals VITALS Vital Signs Date Time Temp Pulse Resp B/P Pulse Ox O2 Delivery O2 Flow Rate FiO2 05/27/16 11:00 98.2 104 24 146/77 96 98.2 05/27/16 03:59 Room Air Labs Labs Laboratory Tests Test 05/26/16 03:10 05/26/16 04:00 05/27/16 05:00 White Blood Count 14.4x10^3/uL (4.0-11.0) 10.9x10^3/uL (4.0-11.0) Red Blood Count 4.14x10^6/uL (4.30-5.70) 3.68x10^6/uL (4.30-5.70) Hemoglobin 13.5g/dL (13.0-17.5) 12.1g/dL (13.0-17.5) Hematocrit 39.7% (39.0-53.0) 34.7% (39.0-53.0) Mean Corpuscular Volume 96fL (79-100) 95fL (79-100) Mean Corpuscular Hemoglobin 33pg (25-35) 33pg (25-35) Mean Corpuscular Hemoglobin Concent 34g/dL (31-37) 35g/dL (31-37) Red Cell Distribution Width 13.2% (11.5-14.5) 13.0% (11.5-14.5) Platelet Count 160x10^3/uL (140-400) 157x10^3/uL (140-400) Neutrophils (%) (Auto) 89% (31-73) 87% (31-73) Lymphocytes (%) (Auto) 4% (24-48) 4% (24-48) Monocytes (%) (Auto) 7% (0-9) 8% (0-9) Eosinophils (%) (Auto) 0% (0-3) 0% (0-3) Basophils (%) (Auto) 0% (0-3) 0% (0-3) Neutrophils # (Auto) 12.8x10^3uL (1.8-7.7) 9.5x10^3uL (1.8-7.7) Lymphocytes # (Auto) 0.5x10^3/uL (1.0-4.8) 0.5x10^3/uL (1.0-4.8) Monocytes # (Auto) 1.0x10^3/uL (0.0-1.1) 0.9x10^3/uL (0.0-1.1) Eosinophils # (Auto) 0.0x10^3/uL (0.0-0.7) 0.0x10^3/uL (0.0-0.7) Basophils # (Auto) 0.0x10^3/uL (0.0-0.2) 0.0x10^3/uL (0.0-0.2) Segmented Neutrophils % 77% (35-66) Band Neutrophils % 16% (0-9) Lymphocytes % 1% (24-48) Monocytes % 5% (0-10) Metamyelocytes % 1% (0-0) Toxic Granulation Slight Platelet Estimate Adequate (ADEQUATE) Prothrombin Time 15.2SEC (11.7-14.0) Prothromb Time International Ratio 1.3 (0.8-1.1) Sodium Level 134mmol/L (136-145) 134mmol/L (136-145) Potassium Level 3.4mmol/L (3.5-5.1) 2.9mmol/L (3.5-5.1) Chloride Level 96mmol/L (98-107) 98mmol/L (98-107) Carbon Dioxide Level 25mmol/L (21-32) 20mmol/L (21-32) Anion Gap 13 (6-14) 16 (6-14) Blood Urea Nitrogen 32mg/dL (8-26) 20mg/dL (8-26) Creatinine 1.5mg/dL (0.7-1.3) 1.1mg/dL (0.7-1.3) Estimated GFR (Cockcroft-Gault) 47.3 67.6 BUN/Creatinine Ratio 21 (6-20) Glucose Level 125mg/dL (70-99) 61mg/dL (70-99) Calcium Level 8.8mg/dL (8.5-10.1) 8.2mg/dL (8.5-10.1) Total Bilirubin 1.8mg/dL (0.2-1.0) Aspartate Amino Transf (AST/SGOT) 24U/L (15-37) Alanine Aminotransferase (ALT/SGPT) 26U/L (16-63) Alkaline Phosphatase 99U/L (46-116) Troponin I Quantitative < 0.017ng/mL (0.000-0.055) Total Protein 6.9g/dL (6.4-8.2) Albumin 3.4g/dL (3.4-5.0) Albumin/Globulin Ratio 1.0 (1.0-1.7) Lipase 71U/L (73-393) Urine Collection Type Unknown Urine Color Lanny Urine Clarity Cloudy Urine pH 6.0 Urine Specific [place] >=1.030 Urine Protein 100mg/dL (NEG-TRACE) Urine Glucose (UA) Negativemg/dL (NEG) Urine Ketones (Stick) Tracemg/dL (NEG) Urine Blood Large (NEG) Urine Nitrite Positive (NEG) Urine Bilirubin Small (NEG) Urine Urobilinogen Dipstick 1.0mg/dL (0.2 mg/dL) Urine Leukocyte Esterase Moderate (NEG) Urine RBC Occ/HPF (0-2) Urine WBC >40/HPF (0-4) Urine Squamous Epithelial Cells Occ/LPF Urine Bacteria Many/HPF (0-FEW) Urine Hyaline Casts Few/HPF Urine Mucus Mod/LPF Urine Opiates Screen Neg (NEG) Urine Methadone Screen Neg (NEG) Urine Barbiturates Neg (NEG) Urine Phencyclidine Screen Neg (NEG) Urine Amphetamine/Methamphetamine Neg (NEG) Urine Benzodiazepines Screen Neg (NEG) Urine Cocaine Screen Neg (NEG) Urine Cannabinoids Screen Neg (NEG) Urine Ethyl Alcohol Neg (NEG) Laboratory Tests Test 05/27/16 05:00 White Blood Count 10.9x10^3/uL (4.0-11.0) Red Blood Count 3.68x10^6/uL (4.30-5.70) Hemoglobin 12.1g/dL (13.0-17.5) Hematocrit 34.7% (39.0-53.0) Mean Corpuscular Volume 95fL (79-100) Mean Corpuscular Hemoglobin 33pg (25-35) Mean Corpuscular Hemoglobin Concent 35g/dL (31-37) Red Cell Distribution Width 13.0% (11.5-14.5) Platelet Count 157x10^3/uL (140-400) Neutrophils (%) (Auto) 87% (31-73) Lymphocytes (%) (Auto) 4% (24-48) Monocytes (%) (Auto) 8% (0-9) Eosinophils (%) (Auto) 0% (0-3) Basophils (%) (Auto) 0% (0-3) Neutrophils # (Auto) 9.5x10^3uL (1.8-7.7) Lymphocytes # (Auto) 0.5x10^3/uL (1.0-4.8) Monocytes # (Auto) 0.9x10^3/uL (0.0-1.1) Eosinophils # (Auto) 0.0x10^3/uL (0.0-0.7) Basophils # (Auto) 0.0x10^3/uL (0.0-0.2) Sodium Level 134mmol/L (136-145) Potassium Level 2.9mmol/L (3.5-5.1) Chloride Level 98mmol/L (98-107) Carbon Dioxide Level 20mmol/L (21-32) Anion Gap 16 (6-14) Blood Urea Nitrogen 20mg/dL (8-26) Creatinine 1.1mg/dL (0.7-1.3) Estimated GFR (Cockcroft-Gault) 67.6 Glucose Level 61mg/dL (70-99) Calcium Level 8.2mg/dL (8.5-10.1) Images Images CT reviewed. Assessment/Plan Assessment/Plan IMP: 1. Distal colitis. Not clear any chronic issues, though probably acute/ infectious. 2. H/o NSAID ulcer? Rec: Continue antibiotics. OK to try clears and advance as tolerated. Would avoid anti-diarrheals. Try to get results of recent colonoscopy. --other pending. Thank you for allowing me to assist in the care of this patient. Please call if questions. MONISHA MEZA MD May 27, 2016 15:59
[2016-05-27 19:00] VITALS: BP 141/78
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
[2016-05-27] MEDS: ATORVASTATIN CALCIUM 10 MG TABLET. PO SCH (20:50)
[2016-05-27 23:00] VITALS: BP 129/72
[2016-05-28 03:00] VITALS: BP 147/88
[2016-05-28] MEDS: HYDROCODONE/APAP 5/325MG TABLET. PO PRN ×3 (04:50→22:18)
[2016-05-28 05:22] LABS: CREATININE 0.9 mg/dL (0.7-1.3); GFR 85.2; POTASSIUM 3.1 mmol/L (3.5-5.1)
[2016-05-28] MEDS: METRONIDAZOLE 500mg PREMIX 100 ML IV SCH ×3 (05:23→23:05)
[2016-05-28 07:00] VITALS: BP 132/83
[2016-05-28 08:22] LABS: BASO % 1 % (0-3); EOS % 1 % (0-3); HEMATOCRIT 35.5 % (39.0-53.0); HEMOGLOBIN 12.3 g/dL (13.0-17.5); LYMPH # 0.8 x10^3/uL (1.0-4.8); LYMPH % 10 % (24-48); MEAN CORPUSCULAR HEMOGLOBIN 33 pg (25-35); MEAN CORPUSCULAR HGB CONC 35 g/dL (31-37); MEAN CORPUSCULAR VOLUME 96 fL (79-100); MONO % 15 % (0-9); NEUT % 73 % (31-73); PLATELET COUNT 158 x10^3/uL (140-400); RED BLOOD COUNT 3.69 x10^6/uL (4.30-5.70); RED CELL DISTRIBUTION WIDTH 13.4 % (11.5-14.5); WHITE BLOOD COUNT 7.2 x10^3/uL (4.0-11.0)
[2016-05-28] MEDS ORDERED: ONDANSETRON PF 4 MG/2 ML VIAL. IV PRN (10:30)
[2016-05-28] MEDS ORDERED: LOPERAMIDE 2 MG CAPSULE PO PRN (10:30)
--- NOTE | 2016-05-28 10:32 | PDOC ---
PROGRESS NOTES Chief Complaint Chief Complaint COlitis by CT Diarrhea. [facility] resident ABd pain needing IV narcs UTI HYpokalemia sec to GI loss HTN, controlled History of Present Illness History of Present Illness Still watery diarrhea Seems to be blood tinged a bit Still abd pain, lowest 7/10 on pain scale despite IV pain meds NO ESR CT scan I ave personally reviewed TElls me had c scope done before, unknown result, long time ago -pt not reliable historian Never had colitis before he claims Came close to emesis this AM PLAN: Check ESR MAy upgrade to GI soft COnt IVF - may dc once eating adequately Replace K Send for stool studies Immodium prn BMP again debora AM Adjust pain meds Dw pt and RN Vitals Vitals Vital Signs Date Time Temp Pulse Resp B/P Pulse Ox O2 Delivery O2 Flow Rate FiO2 05/28/16 07:00 98.1 92 16 132/83 96 Room Air 98.1 Physical Exam General: Alert, Oriented X3 Heart: Normal S1 Lungs: Clear Abdomen: Normal bowel sounds, Soft Extremities: No cyanosis, No edema, Other (palmar erythema) Skin: No significant lesion Labs LABS Laboratory Tests Test 05/28/16 04:00 05/28/16 08:16 Sodium Level 134mmol/L (136-145) Potassium Level 3.1mmol/L (3.5-5.1) Chloride Level 99mmol/L (98-107) Carbon Dioxide Level 19mmol/L (21-32) Anion Gap 16 (6-14) Blood Urea Nitrogen 12mg/dL (8-26) Creatinine 0.9mg/dL (0.7-1.3) Estimated GFR (Cockcroft-Gault) 85.2 Glucose Level 87mg/dL (70-99) Calcium Level 8.0mg/dL (8.5-10.1) White Blood Count 7.2x10^3/uL (4.0-11.0) Red Blood Count 3.69x10^6/uL (4.30-5.70) Hemoglobin 12.3g/dL (13.0-17.5) Hematocrit 35.5% (39.0-53.0) Mean Corpuscular Volume 96fL (79-100) Mean Corpuscular Hemoglobin 33pg (25-35) Mean Corpuscular Hemoglobin Concent 35g/dL (31-37) Red Cell Distribution Width 13.4% (11.5-14.5) Platelet Count 158x10^3/uL (140-400) Neutrophils (%) (Auto) 73% (31-73) Lymphocytes (%) (Auto) 10% (24-48) Monocytes (%) (Auto) 15% (0-9) Eosinophils (%) (Auto) 1% (0-3) Basophils (%) (Auto) 1% (0-3) Neutrophils # (Auto) 5.3x10^3uL (1.8-7.7) Lymphocytes # (Auto) 0.8x10^3/uL (1.0-4.8) Monocytes # (Auto) 1.1x10^3/uL (0.0-1.1) Eosinophils # (Auto) 0.0x10^3/uL (0.0-0.7) Basophils # (Auto) 0.0x10^3/uL (0.0-0.2) Review of Systems Review of Systems abd pain, diarrhea, nausea - no cp, soa Assessment and Plan Assessmemt and Plan Problems Medical Problems: (1) Acute renal injury Status: Acute (2) Dehydration Status: Acute (3) Weakness Status: Acute Problems: Comment Review of Relevant I have reviewed the following items lilian (where applicable) has been applied. Labs Laboratory Tests Test 05/26/16 18:12 05/27/16 05:00 05/28/16 04:00 05/28/16 08:16 Nasal Screen MRSA (PCR) Negative (Negative) White Blood Count 10.9x10^3/uL (4.0-11.0) 7.2x10^3/uL (4.0-11.0) Red Blood Count 3.68x10^6/uL (4.30-5.70) 3.69x10^6/uL (4.30-5.70) Hemoglobin 12.1g/dL (13.0-17.5) 12.3g/dL (13.0-17.5) Hematocrit 34.7% (39.0-53.0) 35.5% (39.0-53.0) Mean Corpuscular Volume 95fL (79-100) 96fL (79-100) Mean Corpuscular Hemoglobin 33pg (25-35) 33pg (25-35) Mean Corpuscular Hemoglobin Concent 35g/dL (31-37) 35g/dL (31-37) Red Cell Distribution Width 13.0% (11.5-14.5) 13.4% (11.5-14.5) Platelet Count 157x10^3/uL (140-400) 158x10^3/uL (140-400) Neutrophils (%) (Auto) 87% (31-73) 73% (31-73) Lymphocytes (%) (Auto) 4% (24-48) 10% (24-48) Monocytes (%) (Auto) 8% (0-9) 15% (0-9) Eosinophils (%) (Auto) 0% (0-3) 1% (0-3) Basophils (%) (Auto) 0% (0-3) 1% (0-3) Neutrophils # (Auto) 9.5x10^3uL (1.8-7.7) 5.3x10^3uL (1.8-7.7) Lymphocytes # (Auto) 0.5x10^3/uL (1.0-4.8) 0.8x10^3/uL (1.0-4.8) Monocytes # (Auto) 0.9x10^3/uL (0.0-1.1) 1.1x10^3/uL (0.0-1.1) Eosinophils # (Auto) 0.0x10^3/uL (0.0-0.7) 0.0x10^3/uL (0.0-0.7) Basophils # (Auto) 0.0x10^3/uL (0.0-0.2) 0.0x10^3/uL (0.0-0.2) Sodium Level 134mmol/L (136-145) 134mmol/L (136-145) Potassium Level 2.9mmol/L (3.5-5.1) 3.1mmol/L (3.5-5.1) Chloride Level 98mmol/L (98-107) 99mmol/L (98-107) Carbon Dioxide Level 20mmol/L (21-32) 19mmol/L (21-32) Anion Gap 16 (6-14) 16 (6-14) Blood Urea Nitrogen 20mg/dL (8-26) 12mg/dL (8-26) Creatinine 1.1mg/dL (0.7-1.3) 0.9mg/dL (0.7-1.3) Estimated GFR (Cockcroft-Gault) 67.6 85.2 Glucose Level 61mg/dL (70-99) 87mg/dL (70-99) Calcium Level 8.2mg/dL (8.5-10.1) 8.0mg/dL (8.5-10.1) Laboratory Tests Test 05/28/16 04:00 05/28/16 08:16 Sodium Level 134mmol/L (136-145) Potassium Level 3.1mmol/L (3.5-5.1) Chloride Level 99mmol/L (98-107) Carbon Dioxide Level 19mmol/L (21-32) Anion Gap 16 (6-14) Blood Urea Nitrogen 12mg/dL (8-26) Creatinine 0.9mg/dL (0.7-1.3) Estimated GFR (Cockcroft-Gault) 85.2 Glucose Level 87mg/dL (70-99) Calcium Level 8.0mg/dL (8.5-10.1) White Blood Count 7.2x10^3/uL (4.0-11.0) Red Blood Count 3.69x10^6/uL (4.30-5.70) Hemoglobin 12.3g/dL (13.0-17.5) Hematocrit 35.5% (39.0-53.0) Mean Corpuscular Volume 96fL (79-100) Mean Corpuscular Hemoglobin 33pg (25-35) Mean Corpuscular Hemoglobin Concent 35g/dL (31-37) Red Cell Distribution Width 13.4% (11.5-14.5) Platelet Count 158x10^3/uL (140-400) Neutrophils (%) (Auto) 73% (31-73) Lymphocytes (%) (Auto) 10% (24-48) Monocytes (%) (Auto) 15% (0-9) Eosinophils (%) (Auto) 1% (0-3) Basophils (%) (Auto) 1% (0-3) Neutrophils # (Auto) 5.3x10^3uL (1.8-7.7) Lymphocytes # (Auto) 0.8x10^3/uL (1.0-4.8) Monocytes # (Auto) 1.1x10^3/uL (0.0-1.1) Eosinophils # (Auto) 0.0x10^3/uL (0.0-0.7) Basophils # (Auto) 0.0x10^3/uL (0.0-0.2) Microbiology 05/26/16 Blood Culture - Preliminary, Resulted NO GROWTH AFTER 1 DAY 05/26/16 Urine Culture - Preliminary, Resulted 05/26/16 Urine Culture Result 1 (ELIZABETH) - Preliminary, Resulted Medications Current Medications Sodium Chloride (Iv Sodium Chloride 0.9% 1000ml Bag) 1,000 ml @ 1,000 mls/hr Q1H IV Last administered on 05/26/16 03:44; Start 05/26/16 at 03:30; Stop at 04:29; Status DC Ibuprofen (Motrin) 400 mg 1X ONCE PO Last administered on 05/26/16 03:44; Start 05/26/16 at 04:00; Stop 05/26/16 at 04:01; Status DC Ondansetron HCl (Zofran) 4 mg 1X ONCE IV Last administered on 05/26/16 03:44 ; Start 05/26/16 at 04:00; Stop 05/26/16 at 04:01; Status DC Acetaminophen (Tylenol) 650 mg 1X ONCE PO Last administered on 05/26/16 03:44 ; Start 05/26/16 at 04:00; Stop 05/26/16 at 04:01; Status DC Ondansetron HCl 4 mg 4 mg PRN Q8HRS PRN IV NAUSEA/VOMITING; Start 05/26/16 at 05:30; Stop 05/26/16 at 18:22; Status DC Sodium Chloride (Iv Sodium Chloride 0.9% 1000ml Bag) 1,000 ml @ 125 mls/hr Q8H IV Last administered on 05/26/16 21:40; Start 05/26/16 at 05:16; Stop at 05:15; Status DC Acetaminophen 650 mg 650 mg PRN Q4HRS PRN PO FEVER; Start 05/26/16 at 05:30; Stop 05/26/16 at 18:22; Status DC Ceftriaxone Sodium 1 gm/ Sodium Chloride 50 ml @ 100 mls/hr Q24H IV Last administered on 05/27/16 06:20; Start 05/27/16 at 07:00; Stop 05/27/16 at 13:57 ; Status DC Ceftriaxone Sodium (Rocephin 1gm Ivpb For Omni) 50 ml @ 100 mls/hr 1X ONCE IV Last administered on 05/26/16 10:30; Start 05/26/16 at 06:30; Stop 05/26/16 at 06:59; Status DC Acetaminophen (Tylenol) 325 mg PRN Q6HRS PRN PO MILD PAIN / TEMP; Start at 10:30; Stop 05/26/16 at 10:30; Status DC Acetaminophen/ Hydrocodone Bitart (Lortab 5/325) 1 tab PRN Q6HRS PRN PO MODERATE TO SEVERE PAIN Last administered on 05/28/16 04:50; Start 05/26/16 at 10:30 Hydralazine HCl (Apresoline) 10 mg PRN Q4HRS PRN IVP ELEVATED BP, SEE COMMENTS ; Start 05/26/16 at 10:30 Ondansetron HCl (Zofran) 4 mg PRN Q8HRS PRN IV NAUSEA/VOMITING Last administered on 05/27/16 15:05; Start 05/26/16 at 10:30; Stop 05/28/16 at 08:35 ; Status DC Albuterol Sulfate (Ventolin Neb Soln) 2.5 mg PRN Q4HRS PRN NEB SHORTNESS OF BREATH; Start 05/26/16 at 10:30 Acetaminophen (Tylenol) 325 mg PRN Q6HRS PRN PO MILD PAIN / TEMP Last administered on 05/26/16 20:17; Start 05/26/16 at 10:30 Iohexol (Omnipaque 240 Mg/ml) 50 ml 1X ONCE PO ; Start 05/26/16 at 11:00; Stop 05/26/16 at 11:02; Status DC Info (Do NOT chart on this entry -- for MONITORING) 1 each PRN DAILY PRN MC SEE COMMENTS; Start 05/26/16 at 11:15; Stop 05/28/16 at 11:14 Atenolol (Tenormin) 12.5 mg DAILY PO Last administered on 05/27/16 08:59; Start 05/26/16 at 19:00 Vitamin D (Vitamin D3) 1,000 unit DAILY PO Last administered on 05/27/16 08:59 ; Start 05/26/16 at 19:00 Tamsulosin HCl (Flomax) 0.4 mg DAILY PO Last administered on 05/27/16 08:58; Start 05/26/16 at 19:00 Cyclobenzaprine HCl (Flexeril) 5 mg BID PO Last administered on 05/27/16 20:51 ; Start 05/26/16 at 21:00 Lamotrigine (LaMICtal) 100 mg BID PO Last administered on 05/27/16 20:50; Start 05/26/16 at 21:00 Atorvastatin Calcium (Lipitor) 5 mg QHS PO Last administered on 05/27/16 20:50 ; Start 05/26/16 at 21:00 Lamotrigine (LaMICtal) 50 mg BID PO Last administered on 05/27/16 20:50; Start 05/26/16 at 21:00 Levofloxacin/ Dextrose 1 each 1 each PRN DAILY PRN MC SEE COMMENTS; Start 05/26 at 19:30; Status UNV Metronidazole 100 ml @ 100 mls/hr Q8HRS IV Last administered on 05/28/16 05: 23; Start 05/26/16 at 22:00 Levofloxacin/ Dextrose 100 ml @ 100 mls/hr Q24H IV Last administered on 20:52; Start 05/26/16 at 21:00 Potassium Chloride 100 ml @ 100 mls/hr Q1H IV Last administered on 05/27/16 13:28; Start 05/27/16 at 07:30; Stop 05/27/16 at 11:29; Status DC Sodium Chloride (Iv Sodium Chloride 0.9% 1000ml Bag) 1,000 ml @ 75 mls/hr [id number] IV Last administered on 05/27/16 17:25; Start 05/27/16 at 11:45 Enoxaparin Sodium (Lovenox 30mg Syringe) 30 mg Q24H SQ Last administered on 14:52; Start 05/27/16 at 12:00; Stop 05/27/16 at 15:10; Status DC Enoxaparin Sodium (Lovenox 40mg Syringe) 40 mg Q24H SQ ; Start 05/28/16 at 15:00 Ondansetron HCl (Zofran) 4 mg PRN Q6HRS PRN IV NAUSEA/VOMITING; Start 05/28/16 at 10:30 Active Scripts Active Colace (Docusate Sodium) 100 Mg Capsule 1 Cap PO BID Reported Ibuprofen 600 Mg Tablet 600 Mg PO BID Cyclobenzaprine Hcl 5 Mg Tablet 5 Mg PO BID Tamsulosin Hcl 0.4 Mg Cap.er.24h 0.4 Mg PO DAILY Vitamin D2 (Ergocalciferol (Vitamin D2)) 50,000 Unit Capsule 1 Cap PO WEEKLY Atenolol 25 Mg Tablet 12.5 Mg PO DAILY Vitamin D3 (Cholecalciferol (Vitamin D3)) 1,000 Unit Tablet 1 Tab PO DAILY Lamotrigine 150 Mg Tablet 150 Mg PO BID Senokot (Sennosides) 8.6 Mg Tablet 8.6 Mg PO BID Lovastatin 20 Mg Tablet 20 Mg PO HS Vitals/I & O Vital Sign - Last 24 Hours 05/27/16 05/27/16 05/27/16 05/27/16 11:00 15:00 19:00 20:19 Temp 98.2 97.2 98.9 98.2 97.2 98.9 Pulse 104 88 91 Resp 24 24 19 B/P 146/77 124/79 141/78 Pulse Ox 96 96 94 O2 Delivery Room Air Room Air Room Air 05/27/16 05/27/16 05/28/16 05/28/16 20:51 23:00 03:00 04:50 Temp 98.6 99.3 98.6 99.3 Pulse 99 94 Resp 18 20 19 18 B/P 129/72 147/88 Pulse Ox 94 93 94 94 O2 Delivery Room Air Room Air Room Air Room Air 05/28/16 05/28/16 05:43 07:00 Temp 98.1 98.1 Pulse 92 Resp 18 16 B/P 132/83 Pulse Ox 94 96 O2 Delivery Room Air Room Air Intake and Output 05/27/16 05/27/16 05/28/16 15:00 23:00 07:00 Intake Total 902 ml 2140 ml 1220 ml Output Total 800 ml 540 ml Balance 102 ml 1600 ml 1220 ml MARTHA KLEIN MD May 28, 2016 10:32
[2016-05-28] MEDS ORDERED: MORPHINE SULFATE 2 MG/ML DISP.SYRIN. IV PRN (10:45)
[2016-05-28 11:00] VITALS: BP 145/93
[2016-05-28] MEDS: lamoTRIgine 100 MG TABLET. PO SCH ×2 (11:10→22:13)
[2016-05-28] MEDS: lamoTRIgine 25 MG TABLET. PO SCH ×2 (11:10→22:13)
[2016-05-28] MEDS: CHOLECALCIFEROL (VITAMIN D3) 1,000 UNIT TABLET PO SCH (11:11)
[2016-05-28] MEDS: ATENOLOL 25 MG TABLET. PO SCH (11:11)
[2016-05-28] MEDS: CYCLOBENZAPRINE 10 MG TABLET. PO SCH ×2 (11:11→22:16)
[2016-05-28] MEDS: TAMSULOSIN 0.4 MG CAP.ER.24H. PO SCH (11:11)
[2016-05-28] MEDS: IV NORMAL SALINE 1000ML BAG 1,000 ML IV SCH (13:38)
--- NOTE | 2016-05-28 14:35 | PDOC ---
G I PROGRESS NOTE Subjective Really can't quantify his illness. Seems in no great distress. Objective Fewer stools charted. Differing reports on past health issues, particularly endoscopies. Physical Exam Lungs clear. RRR Abdomen soft, not distended. Some LQ tenderness, mild. Active bowel sounds. Review of Relevant I have reviewed the following items lilian (where applicable) has been applied. Labs Laboratory Tests Test 05/26/16 18:12 05/27/16 05:00 05/28/16 04:00 05/28/16 04:50 Nasal Screen MRSA (PCR) Negative (Negative) White Blood Count 10.9x10^3/uL (4.0-11.0) Red Blood Count 3.68x10^6/uL (4.30-5.70) Hemoglobin 12.1g/dL (13.0-17.5) Hematocrit 34.7% (39.0-53.0) Mean Corpuscular Volume 95fL (79-100) Mean Corpuscular Hemoglobin 33pg (25-35) Mean Corpuscular Hemoglobin Concent 35g/dL (31-37) Red Cell Distribution Width 13.0% (11.5-14.5) Platelet Count 157x10^3/uL (140-400) Neutrophils (%) (Auto) 87% (31-73) Lymphocytes (%) (Auto) 4% (24-48) Monocytes (%) (Auto) 8% (0-9) Eosinophils (%) (Auto) 0% (0-3) Basophils (%) (Auto) 0% (0-3) Neutrophils # (Auto) 9.5x10^3uL (1.8-7.7) Lymphocytes # (Auto) 0.5x10^3/uL (1.0-4.8) Monocytes # (Auto) 0.9x10^3/uL (0.0-1.1) Eosinophils # (Auto) 0.0x10^3/uL (0.0-0.7) Basophils # (Auto) 0.0x10^3/uL (0.0-0.2) Sodium Level 134mmol/L (136-145) 134mmol/L (136-145) Potassium Level 2.9mmol/L (3.5-5.1) 3.1mmol/L (3.5-5.1) Chloride Level 98mmol/L (98-107) 99mmol/L (98-107) Carbon Dioxide Level 20mmol/L (21-32) 19mmol/L (21-32) Anion Gap 16 (6-14) 16 (6-14) Blood Urea Nitrogen 20mg/dL (8-26) 12mg/dL (8-26) Creatinine 1.1mg/dL (0.7-1.3) 0.9mg/dL (0.7-1.3) Estimated GFR (Cockcroft-Gault) 67.6 85.2 Glucose Level 61mg/dL (70-99) 87mg/dL (70-99) Calcium Level 8.2mg/dL (8.5-10.1) 8.0mg/dL (8.5-10.1) Clostridium difficile Toxin (PCR) Negative (Negative) Test 05/28/16 08:16 White Blood Count 7.2x10^3/uL (4.0-11.0) Red Blood Count 3.69x10^6/uL (4.30-5.70) Hemoglobin 12.3g/dL (13.0-17.5) Hematocrit 35.5% (39.0-53.0) Mean Corpuscular Volume 96fL (79-100) Mean Corpuscular Hemoglobin 33pg (25-35) Mean Corpuscular Hemoglobin Concent 35g/dL (31-37) Red Cell Distribution Width 13.4% (11.5-14.5) Platelet Count 158x10^3/uL (140-400) Neutrophils (%) (Auto) 73% (31-73) Lymphocytes (%) (Auto) 10% (24-48) Monocytes (%) (Auto) 15% (0-9) Eosinophils (%) (Auto) 1% (0-3) Basophils (%) (Auto) 1% (0-3) Neutrophils # (Auto) 5.3x10^3uL (1.8-7.7) Lymphocytes # (Auto) 0.8x10^3/uL (1.0-4.8) Monocytes # (Auto) 1.1x10^3/uL (0.0-1.1) Eosinophils # (Auto) 0.0x10^3/uL (0.0-0.7) Basophils # (Auto) 0.0x10^3/uL (0.0-0.2) Erythrocyte Sedimentation Rate 33 (0-15) Laboratory Tests Test 05/28/16 04:00 05/28/16 04:50 05/28/16 08:16 Sodium Level 134mmol/L (136-145) Potassium Level 3.1mmol/L (3.5-5.1) Chloride Level 99mmol/L (98-107) Carbon Dioxide Level 19mmol/L (21-32) Anion Gap 16 (6-14) Blood Urea Nitrogen 12mg/dL (8-26) Creatinine 0.9mg/dL (0.7-1.3) Estimated GFR (Cockcroft-Gault) 85.2 Glucose Level 87mg/dL (70-99) Calcium Level 8.0mg/dL (8.5-10.1) Clostridium difficile Toxin (PCR) Negative (Negative) White Blood Count 7.2x10^3/uL (4.0-11.0) Red Blood Count 3.69x10^6/uL (4.30-5.70) Hemoglobin 12.3g/dL (13.0-17.5) Hematocrit 35.5% (39.0-53.0) Mean Corpuscular Volume 96fL (79-100) Mean Corpuscular Hemoglobin 33pg (25-35) Mean Corpuscular Hemoglobin Concent 35g/dL (31-37) Red Cell Distribution Width 13.4% (11.5-14.5) Platelet Count 158x10^3/uL (140-400) Neutrophils (%) (Auto) 73% (31-73) Lymphocytes (%) (Auto) 10% (24-48) Monocytes (%) (Auto) 15% (0-9) Eosinophils (%) (Auto) 1% (0-3) Basophils (%) (Auto) 1% (0-3) Neutrophils # (Auto) 5.3x10^3uL (1.8-7.7) Lymphocytes # (Auto) 0.8x10^3/uL (1.0-4.8) Monocytes # (Auto) 1.1x10^3/uL (0.0-1.1) Eosinophils # (Auto) 0.0x10^3/uL (0.0-0.7) Basophils # (Auto) 0.0x10^3/uL (0.0-0.2) Erythrocyte Sedimentation Rate 33 (0-15) Microbiology 05/26/16 Blood Culture - Preliminary, Resulted NO GROWTH AFTER 1 DAY 05/26/16 Urine Culture - Final, Complete 05/26/16 Urine Culture Result 1 (ELIZABETH) - Final, Complete 05/26/16 Antimicrobic Susceptibility - Final, Complete E.coli in urine culture. Medications Current Medications Sodium Chloride (Iv Sodium Chloride 0.9% 1000ml Bag) 1,000 ml @ 1,000 mls/hr Q1H IV Last administered on 05/26/16 03:44; Start 05/26/16 at 03:30; Stop at 04:29; Status DC Ibuprofen (Motrin) 400 mg 1X ONCE PO Last administered on 05/26/16 03:44; Start 05/26/16 at 04:00; Stop 05/26/16 at 04:01; Status DC Ondansetron HCl (Zofran) 4 mg 1X ONCE IV Last administered on 05/26/16 03:44 ; Start 05/26/16 at 04:00; Stop 05/26/16 at 04:01; Status DC Acetaminophen (Tylenol) 650 mg 1X ONCE PO Last administered on 05/26/16 03:44 ; Start 05/26/16 at 04:00; Stop 05/26/16 at 04:01; Status DC Ondansetron HCl 4 mg 4 mg PRN Q8HRS PRN IV NAUSEA/VOMITING; Start 05/26/16 at 05:30; Stop 05/26/16 at 18:22; Status DC Sodium Chloride (Iv Sodium Chloride 0.9% 1000ml Bag) 1,000 ml @ 125 mls/hr Q8H IV Last administered on 05/26/16 21:40; Start 05/26/16 at 05:16; Stop at 05:15; Status DC Acetaminophen 650 mg 650 mg PRN Q4HRS PRN PO FEVER; Start 05/26/16 at 05:30; Stop 05/26/16 at 18:22; Status DC Ceftriaxone Sodium 1 gm/ Sodium Chloride 50 ml @ 100 mls/hr Q24H IV Last administered on 05/27/16 06:20; Start 05/27/16 at 07:00; Stop 05/27/16 at 13:57 ; Status DC Ceftriaxone Sodium (Rocephin 1gm Ivpb For Omni) 50 ml @ 100 mls/hr 1X ONCE IV Last administered on 05/26/16 10:30; Start 05/26/16 at 06:30; Stop 05/26/16 at 06:59; Status DC Acetaminophen (Tylenol) 325 mg PRN Q6HRS PRN PO MILD PAIN / TEMP; Start at 10:30; Stop 05/26/16 at 10:30; Status DC Acetaminophen/ Hydrocodone Bitart (Lortab 5/325) 1 tab PRN Q6HRS PRN PO MODERATE TO SEVERE PAIN Last administered on 05/28/16 13:34; Start 05/26/16 at 10:30 Hydralazine HCl (Apresoline) 10 mg PRN Q4HRS PRN IVP ELEVATED BP, SEE COMMENTS ; Start 05/26/16 at 10:30 Ondansetron HCl (Zofran) 4 mg PRN Q8HRS PRN IV NAUSEA/VOMITING Last administered on 05/27/16 15:05; Start 05/26/16 at 10:30; Stop 05/28/16 at 08:35 ; Status DC Albuterol Sulfate (Ventolin Neb Soln) 2.5 mg PRN Q4HRS PRN NEB SHORTNESS OF BREATH; Start 05/26/16 at 10:30 Acetaminophen (Tylenol) 325 mg PRN Q6HRS PRN PO MILD PAIN / TEMP Last administered on 05/26/16 20:17; Start 05/26/16 at 10:30 Iohexol (Omnipaque 240 Mg/ml) 50 ml 1X ONCE PO ; Start 05/26/16 at 11:00; Stop 05/26/16 at 11:02; Status DC Info (Do NOT chart on this entry -- for MONITORING) 1 each PRN DAILY PRN MC SEE COMMENTS; Start 05/26/16 at 11:15; Stop 05/28/16 at 11:14; Status DC Atenolol (Tenormin) 12.5 mg DAILY PO Last administered on 05/28/16 11:11; Start 05/26/16 at 19:00 Vitamin D (Vitamin D3) 1,000 unit DAILY PO Last administered on 05/28/16 11:11 ; Start 05/26/16 at 19:00 Tamsulosin HCl (Flomax) 0.4 mg DAILY PO Last administered on 05/28/16 11:11; Start 05/26/16 at 19:00 Cyclobenzaprine HCl (Flexeril) 5 mg BID PO Last administered on 05/28/16 11:11 ; Start 05/26/16 at 21:00 Lamotrigine (LaMICtal) 100 mg BID PO Last administered on 05/28/16 11:10; Start 05/26/16 at 21:00 Atorvastatin Calcium (Lipitor) 5 mg QHS PO Last administered on 05/27/16 20:50 ; Start 05/26/16 at 21:00 Lamotrigine (LaMICtal) 50 mg BID PO Last administered on 05/28/16 11:10; Start 05/26/16 at 21:00 Levofloxacin/ Dextrose 1 each 1 each PRN DAILY PRN MC SEE COMMENTS; Start 05/26 at 19:30; Status UNV Metronidazole 100 ml @ 100 mls/hr Q8HRS IV Last administered on 05/28/16 13: 34; Start 05/26/16 at 22:00 Levofloxacin/ Dextrose 100 ml @ 100 mls/hr Q24H IV Last administered on 20:52; Start 05/26/16 at 21:00 Potassium Chloride 100 ml @ 100 mls/hr Q1H IV Last administered on 05/27/16 13:28; Start 05/27/16 at 07:30; Stop 05/27/16 at 11:29; Status DC Sodium Chloride (Iv Sodium Chloride 0.9% 1000ml Bag) 1,000 ml @ 75 mls/hr [id number] IV Last administered on 05/28/16 13:38; Start 05/27/16 at 11:45 Enoxaparin Sodium (Lovenox 30mg Syringe) 30 mg Q24H SQ Last administered on 14:52; Start 05/27/16 at 12:00; Stop 05/27/16 at 15:10; Status DC Enoxaparin Sodium (Lovenox 40mg Syringe) 40 mg Q24H SQ ; Start 05/28/16 at 15:00 Ondansetron HCl (Zofran) 4 mg PRN Q6HRS PRN IV NAUSEA/VOMITING; Start 05/28/16 at 10:30 Loperamide HCl (Imodium) 2 mg PRN Q15MIN PRN PO DIARRHEA; Start 05/28/16 at 10: 30 Morphine Sulfate 2 mg PRN Q2HR PRN IV PAIN; Start 05/28/16 at 10:45 Active Scripts Active Colace (Docusate Sodium) 100 Mg Capsule 1 Cap PO BID Reported Ibuprofen 600 Mg Tablet 600 Mg PO BID Cyclobenzaprine Hcl 5 Mg Tablet 5 Mg PO BID Tamsulosin Hcl 0.4 Mg Cap.er.24h 0.4 Mg PO DAILY Vitamin D2 (Ergocalciferol (Vitamin D2)) 50,000 Unit Capsule 1 Cap PO WEEKLY Atenolol 25 Mg Tablet 12.5 Mg PO DAILY Vitamin D3 (Cholecalciferol (Vitamin D3)) 1,000 Unit Tablet 1 Tab PO DAILY Lamotrigine 150 Mg Tablet 150 Mg PO BID Senokot (Sennosides) 8.6 Mg Tablet 8.6 Mg PO BID Lovastatin 20 Mg Tablet 20 Mg PO HS Vitals/I & O Vital Sign - Last 24 Hours 05/27/16 05/27/16 05/27/16 05/27/16 15:00 19:00 20:19 20:51 Temp 97.2 98.9 97.2 98.9 Pulse 88 91 Resp 24 19 18 B/P 124/79 141/78 Pulse Ox 96 94 94 O2 Delivery Room Air Room Air Room Air Room Air 05/27/16 05/28/16 05/28/16 05/28/16 23:00 03:00 04:50 05:43 Temp 98.6 99.3 98.6 99.3 Pulse 99 94 Resp 20 19 18 18 B/P 129/72 147/88 Pulse Ox 93 94 94 94 O2 Delivery Room Air Room Air Room Air Room Air 05/28/16 05/28/16 05/28/16 05/28/16 07:00 08:00 11:00 11:11 Temp 98.1 98.3 98.1 98.3 Pulse 92 91 92 Resp 16 16 B/P 132/83 145/93 132/83 Pulse Ox 96 96 O2 Delivery Room Air Room Air Room Air 05/28/16 13:34 O2 Delivery Room Air Intake and Output 05/27/16 05/27/16 05/28/16 15:00 23:00 07:00 Intake Total 902 ml 2140 ml 1220 ml Output Total 800 ml 540 ml Balance 102 ml 1600 ml 1220 ml Problem List Problems Medical Problems: (1) Acute renal injury Status: Acute (2) Dehydration Status: Acute (3) Weakness Status: Acute Assessment Colitis, likely infectious/likely bacterial. Current antibiotics should cover. Cultures not reliable really. Plan of Care: Continue current Tx, Mgmt Plan of Care Note Will see if can get records from [facility] re: any scopes. MONISHA MEZA MD May 28, 2016 14:35
[2016-05-28 15:00] VITALS: BP 121/74
[2016-05-28] MEDS: ENOXAPARIN 40 MG/0.4 ML SYRINGE. SQ SCH (16:21)
[2016-05-28 19:00] VITALS: BP 124/81
[2016-05-28] MEDS: ATORVASTATIN CALCIUM 10 MG TABLET. PO SCH (22:17)
[2016-05-28 22:35] VITALS: BP 122/88
[2016-05-29] MEDS: IV NORMAL SALINE 1000ML BAG 1,000 ML IV SCH ×2 (03:45→13:12)
[2016-05-29] MEDS: METRONIDAZOLE 500mg PREMIX 100 ML IV SCH ×2 (05:38→13:12)
[2016-05-29 06:47] LABS: BASO % 0 % (0-3); EOS % 1 % (0-3); HEMATOCRIT 35.6 % (39.0-53.0); HEMOGLOBIN 12.2 g/dL (13.0-17.5); LYMPH # 0.9 x10^3/uL (1.0-4.8); LYMPH % 13 % (24-48); MEAN CORPUSCULAR HEMOGLOBIN 33 pg (25-35); MEAN CORPUSCULAR HGB CONC 34 g/dL (31-37); MEAN CORPUSCULAR VOLUME 95 fL (79-100); MONO % 16 % (0-9); NEUT % 69 % (31-73); PLATELET COUNT 188 x10^3/uL (140-400); RED BLOOD COUNT 3.74 x10^6/uL (4.30-5.70); RED CELL DISTRIBUTION WIDTH 13.5 % (11.5-14.5); WHITE BLOOD COUNT 7.1 x10^3/uL (4.0-11.0)
[2016-05-29 07:00] VITALS: BP 144/90
[2016-05-29 07:15] LABS: CALCIUM 8.1 mg/dL (8.5-10.1); CREATININE 0.9 mg/dL (0.7-1.3); GFR 85.2
[2016-05-29 07:23] LABS: POTASSIUM 2.6 mmol/L (3.5-5.1)
[2016-05-29] MEDS: TAMSULOSIN 0.4 MG CAP.ER.24H. PO SCH (08:04)
[2016-05-29] MEDS: POTASSIUM CHLORIDE 20 MEQ TABLET.ER. PO SCH ×2 (08:04→08:09)
[2016-05-29] MEDS: lamoTRIgine 25 MG TABLET. PO SCH (08:04)
[2016-05-29] MEDS: CHOLECALCIFEROL (VITAMIN D3) 1,000 UNIT TABLET PO SCH (08:04)
[2016-05-29] MEDS: CYCLOBENZAPRINE 10 MG TABLET. PO SCH (08:05)
[2016-05-29] MEDS: HYDROCODONE/APAP 5/325MG TABLET. PO PRN (08:05)
[2016-05-29] MEDS: lamoTRIgine 100 MG TABLET. PO SCH (08:05)
[2016-05-29] MEDS: ATENOLOL 25 MG TABLET. PO SCH (08:05)
--- NOTE | 2016-05-29 09:38 | PDOC ---
G I PROGRESS NOTE Subjective He's unclear re: status of diarrhea. Says had "black" stool this am. Says eating OK. Objective Small amount of stool in commode; looks relatively normal. No records from [place]. Physical Exam Lungs clear. RRR Abdomen soft, not distended nor tender. Review of Relevant I have reviewed the following items lilian (where applicable) has been applied. Labs Laboratory Tests Test 05/28/16 04:00 05/28/16 04:50 05/28/16 08:16 05/29/16 06:17 Sodium Level 134mmol/L (136-145) 139mmol/L (136-145) Potassium Level 3.1mmol/L (3.5-5.1) 2.6mmol/L (3.5-5.1) Chloride Level 99mmol/L (98-107) 102mmol/L (98-107) Carbon Dioxide Level 19mmol/L (21-32) 24mmol/L (21-32) Anion Gap 16 (6-14) 13 (6-14) Blood Urea Nitrogen 12mg/dL (8-26) 8mg/dL (8-26) Creatinine 0.9mg/dL (0.7-1.3) 0.9mg/dL (0.7-1.3) Estimated GFR (Cockcroft-Gault) 85.2 85.2 Glucose Level 87mg/dL (70-99) 102mg/dL (70-99) Calcium Level 8.0mg/dL (8.5-10.1) 8.1mg/dL (8.5-10.1) Clostridium difficile Toxin (PCR) Negative (Negative) White Blood Count 7.2x10^3/uL (4.0-11.0) 7.1x10^3/uL (4.0-11.0) Red Blood Count 3.69x10^6/uL (4.30-5.70) 3.74x10^6/uL (4.30-5.70) Hemoglobin 12.3g/dL (13.0-17.5) 12.2g/dL (13.0-17.5) Hematocrit 35.5% (39.0-53.0) 35.6% (39.0-53.0) Mean Corpuscular Volume 96fL (79-100) 95fL (79-100) Mean Corpuscular Hemoglobin 33pg (25-35) 33pg (25-35) Mean Corpuscular Hemoglobin Concent 35g/dL (31-37) 34g/dL (31-37) Red Cell Distribution Width 13.4% (11.5-14.5) 13.5% (11.5-14.5) Platelet Count 158x10^3/uL (140-400) 188x10^3/uL (140-400) Neutrophils (%) (Auto) 73% (31-73) 69% (31-73) Lymphocytes (%) (Auto) 10% (24-48) 13% (24-48) Monocytes (%) (Auto) 15% (0-9) 16% (0-9) Eosinophils (%) (Auto) 1% (0-3) 1% (0-3) Basophils (%) (Auto) 1% (0-3) 0% (0-3) Neutrophils # (Auto) 5.3x10^3uL (1.8-7.7) 4.9x10^3uL (1.8-7.7) Lymphocytes # (Auto) 0.8x10^3/uL (1.0-4.8) 0.9x10^3/uL (1.0-4.8) Monocytes # (Auto) 1.1x10^3/uL (0.0-1.1) 1.2x10^3/uL (0.0-1.1) Eosinophils # (Auto) 0.0x10^3/uL (0.0-0.7) 0.1x10^3/uL (0.0-0.7) Basophils # (Auto) 0.0x10^3/uL (0.0-0.2) 0.0x10^3/uL (0.0-0.2) Erythrocyte Sedimentation Rate 33 (0-15) Laboratory Tests Test 05/29/16 06:17 White Blood Count 7.1x10^3/uL (4.0-11.0) Red Blood Count 3.74x10^6/uL (4.30-5.70) Hemoglobin 12.2g/dL (13.0-17.5) Hematocrit 35.6% (39.0-53.0) Mean Corpuscular Volume 95fL (79-100) Mean Corpuscular Hemoglobin 33pg (25-35) Mean Corpuscular Hemoglobin Concent 34g/dL (31-37) Red Cell Distribution Width 13.5% (11.5-14.5) Platelet Count 188x10^3/uL (140-400) Neutrophils (%) (Auto) 69% (31-73) Lymphocytes (%) (Auto) 13% (24-48) Monocytes (%) (Auto) 16% (0-9) Eosinophils (%) (Auto) 1% (0-3) Basophils (%) (Auto) 0% (0-3) Neutrophils # (Auto) 4.9x10^3uL (1.8-7.7) Lymphocytes # (Auto) 0.9x10^3/uL (1.0-4.8) Monocytes # (Auto) 1.2x10^3/uL (0.0-1.1) Eosinophils # (Auto) 0.1x10^3/uL (0.0-0.7) Basophils # (Auto) 0.0x10^3/uL (0.0-0.2) Sodium Level 139mmol/L (136-145) Potassium Level 2.6mmol/L (3.5-5.1) Chloride Level 102mmol/L (98-107) Carbon Dioxide Level 24mmol/L (21-32) Anion Gap 13 (6-14) Blood Urea Nitrogen 8mg/dL (8-26) Creatinine 0.9mg/dL (0.7-1.3) Estimated GFR (Cockcroft-Gault) 85.2 Glucose Level 102mg/dL (70-99) Calcium Level 8.1mg/dL (8.5-10.1) Microbiology 05/26/16 Blood Culture - Preliminary, Resulted NO GROWTH AFTER 2 DAYS 05/26/16 Urine Culture - Final, Complete 05/26/16 Urine Culture Result 1 (ELIZABETH) - Final, Complete 05/26/16 Antimicrobic Susceptibility - Final, Complete Labs stable. Medications Current Medications Sodium Chloride (Iv Sodium Chloride 0.9% 1000ml Bag) 1,000 ml @ 1,000 mls/hr Q1H IV Last administered on 05/26/16t 03:44; Start 05/26/16 at 03:30; Stop at 04:29; Status DC Ibuprofen (Motrin) 400 mg 1X ONCE PO Last administered on 05/26/16 03:44; Start 05/26/16 at 04:00; Stop 05/26/16 at 04:01; Status DC Ondansetron HCl (Zofran) 4 mg 1X ONCE IV Last administered on 05/26/16 03:44 ; Start 05/26/16 at 04:00; Stop 05/26/16 at 04:01; Status DC Acetaminophen (Tylenol) 650 mg 1X ONCE PO Last administered on 05/26/16 03:44 ; Start 05/26/16 at 04:00; Stop 05/26/16 at 04:01; Status DC Ondansetron HCl 4 mg 4 mg PRN Q8HRS PRN IV NAUSEA/VOMITING; Start 05/26/16 at 05:30; Stop 05/26/16 at 18:22; Status DC Sodium Chloride (Iv Sodium Chloride 0.9% 1000ml Bag) 1,000 ml @ 125 mls/hr Q8H IV Last administered on 05/26/16 21:40; Start 05/26/16 at 05:16; Stop at 05:15; Status DC Acetaminophen 650 mg 650 mg PRN Q4HRS PRN PO FEVER; Start 05/26/16 at 05:30; Stop 05/26/16 at 18:22; Status DC Ceftriaxone Sodium 1 gm/ Sodium Chloride 50 ml @ 100 mls/hr Q24H IV Last administered on 05/27/16 06:20; Start 05/27/16 at 07:00; Stop 05/27/16 at 13:57 ; Status DC Ceftriaxone Sodium (Rocephin 1gm Ivpb For Omni) 50 ml @ 100 mls/hr 1X ONCE IV Last administered on 05/26/16 10:30; Start 05/26/16 at 06:30; Stop 05/26/16 at 06:59; Status DC Acetaminophen (Tylenol) 325 mg PRN Q6HRS PRN PO MILD PAIN / TEMP; Start at 10:30; Stop 05/26/16 at 10:30; Status DC Acetaminophen/ Hydrocodone Bitart (Lortab 5/325) 1 tab PRN Q6HRS PRN PO MODERATE TO SEVERE PAIN Last administered on 05/29/16 08:05; Start 05/26/16 at 10:30 Hydralazine HCl (Apresoline) 10 mg PRN Q4HRS PRN IVP ELEVATED BP, SEE COMMENTS ; Start 05/26/16 at 10:30 Ondansetron HCl (Zofran) 4 mg PRN Q8HRS PRN IV NAUSEA/VOMITING Last administered on 05/27/16 15:05; Start 05/26/16 at 10:30; Stop 05/28/16 at 08:35 ; Status DC Albuterol Sulfate (Ventolin Neb Soln) 2.5 mg PRN Q4HRS PRN NEB SHORTNESS OF BREATH; Start 05/26/16 at 10:30 Acetaminophen (Tylenol) 325 mg PRN Q6HRS PRN PO MILD PAIN / TEMP Last administered on 05/26/16 20:17; Start 05/26/16 at 10:30 Iohexol (Omnipaque 240 Mg/ml) 50 ml 1X ONCE PO ; Start 05/26/16 at 11:00; Stop 05/26/16 at 11:02; Status DC Info (Do NOT chart on this entry -- for MONITORING) 1 each PRN DAILY PRN MC SEE COMMENTS; Start 05/26/16 at 11:15; Stop 05/28/16 at 11:14; Status DC Atenolol (Tenormin) 12.5 mg DAILY PO Last administered on 05/29/16 08:05; Start 05/26/16 at 19:00 Vitamin D (Vitamin D3) 1,000 unit DAILY PO Last administered on 05/29/16 08:04 ; Start 05/26/16 at 19:00 Tamsulosin HCl (Flomax) 0.4 mg DAILY PO Last administered on 05/29/16 08:04; Start 05/26/16 at 19:00 Cyclobenzaprine HCl (Flexeril) 5 mg BID PO Last administered on 05/29/16 08:05 ; Start 05/26/16 at 21:00 Lamotrigine (LaMICtal) 100 mg BID PO Last administered on 05/29/16 08:05; Start 05/26/16 at 21:00 Atorvastatin Calcium (Lipitor) 5 mg QHS PO Last administered on 05/28/16 22:17 ; Start 05/26/16 at 21:00 Lamotrigine (LaMICtal) 50 mg BID PO Last administered on 05/29/16 08:04; Start 05/26/16 at 21:00 Levofloxacin/ Dextrose 1 each 1 each PRN DAILY PRN MC SEE COMMENTS; Start 05/26 at 19:30; Status UNV Metronidazole 100 ml @ 100 mls/hr Q8HRS IV Last administered on 05/29/16 05: 38; Start 05/26/16 at 22:00 Levofloxacin/ Dextrose 100 ml @ 100 mls/hr Q24H IV Last administered on 22:18; Start 05/26/16 at 21:00 Potassium Chloride 100 ml @ 100 mls/hr Q1H IV Last administered on 05/27/16 13:28; Start 05/27/16 at 07:30; Stop 05/27/16 at 11:29; Status DC Sodium Chloride (Iv Sodium Chloride 0.9% 1000ml Bag) 1,000 ml @ 75 mls/hr [id number] IV Last administered on 05/29/16 03:45; Start 05/27/16 at 11:45 Enoxaparin Sodium (Lovenox 30mg Syringe) 30 mg Q24H SQ Last administered on 14:52; Start 05/27/16 at 12:00; Stop 05/27/16 at 15:10; Status DC Enoxaparin Sodium (Lovenox 40mg Syringe) 40 mg Q24H SQ Last administered on 16:21; Start 05/28/16 at 15:00 Ondansetron HCl (Zofran) 4 mg PRN Q6HRS PRN IV NAUSEA/VOMITING; Start 05/28/16 at 10:30 Loperamide HCl (Imodium) 2 mg PRN Q15MIN PRN PO DIARRHEA; Start 05/28/16 at 10: 30 Morphine Sulfate 2 mg PRN Q2HR PRN IV PAIN; Start 05/28/16 at 10:45 Potassium Chloride (Klor-Con) 40 meq Q1H PO Last administered on 05/29/16 08: 09; Start 05/29/16 at 08:00; Stop 05/29/16 at 09:01; Status DC Active Scripts Active Colace (Docusate Sodium) 100 Mg Capsule 1 Cap PO BID Reported Ibuprofen 600 Mg Tablet 600 Mg PO BID Cyclobenzaprine Hcl 5 Mg Tablet 5 Mg PO BID Tamsulosin Hcl 0.4 Mg Cap.er.24h 0.4 Mg PO DAILY Vitamin D2 (Ergocalciferol (Vitamin D2)) 50,000 Unit Capsule 1 Cap PO WEEKLY Atenolol 25 Mg Tablet 12.5 Mg PO DAILY Vitamin D3 (Cholecalciferol (Vitamin D3)) 1,000 Unit Tablet 1 Tab PO DAILY Lamotrigine 150 Mg Tablet 150 Mg PO BID Senokot (Sennosides) 8.6 Mg Tablet 8.6 Mg PO BID Lovastatin 20 Mg Tablet 20 Mg PO HS Vitals/I & O Vital Sign - Last 24 Hours 05/28/16 05/28/16 05/28/16 05/28/16 11:00 11:11 13:34 15:00 Temp 98.3 98.3 98.3 98.3 Pulse 91 92 87 Resp 16 B/P 145/93 132/83 121/74 Pulse Ox 96 96 O2 Delivery Room Air Room Air Room Air 05/28/16 05/28/16 05/28/16 05/29/16 19:00 22:18 22:35 07:00 Temp 97.9 98.8 97.9 97.9 98.8 97.9 Pulse 94 86 80 Resp 18 B/P 124/81 122/88 144/90 Pulse Ox 100 96 96 O2 Delivery Room Air Room Air Room Air 05/29/16 05/29/16 05/29/16 05/29/16 08:00 08:05 08:05 09:05 Pulse 80 Resp 20 B/P 144/90 Pulse Ox 96 96 O2 Delivery Room Air Room Air Room Air Intake and Output 05/28/16 05/28/16 05/29/16 15:00 23:00 07:00 Intake Total 500 ml Output Total 400 ml Balance 100 ml Charted stool frequency decreasing. Problem List Problems Medical Problems: (1) Acute renal injury Status: Acute (2) Dehydration Status: Acute (3) Weakness Status: Acute Assessment Probable infectious diarrhea, seemingly improved. Plan of Care: Continue current Tx, Mgmt Plan of Care Note Home? MONISHA MEZA MD May 29, 2016 09:38
[2016-05-29 10:28] VITALS: BP 133/88
[2016-05-29] MEDS ORDERED: LEVO500T38 PO (11:33)
[2016-05-29] MEDS ORDERED: METR500T PO (11:33)
--- NOTE | 2016-05-29 11:36 | PDOC3 ---
Discharge Summary Visit Information Date of Admission: May 26, 2016 Date of Discharge: May 29, 2016 Admitting Diagnosis Comment: COlitis by CT Diarrhea. [facility] resident ABd pain needing IV narcs UTI HYpokalemia sec to GI loss HTN, controlled Final Diagnosis Problems Medical Problems: (1) Acute renal injury Status: Acute (2) Dehydration Status: Acute (3) Diarrhea Status: Acute (4) Weakness Status: Acute Brief Hospital Course Allergies Allergies Coded Allergies Type Severity Reaction Last Updated Verified No Known Drug Allergies 05/02/16 No Vital Signs Vital Signs Date Time Temp Pulse Resp B/P Pulse Ox O2 Delivery O2 Flow Rate FiO2 05/29/16 10:28 97.9 88 18 133/88 96 Room Air 97.9 Lab Results Laboratory Tests Test 05/28/16 04:00 05/28/16 04:50 05/28/16 08:16 05/29/16 06:17 Sodium Level 134mmol/L (136-145) 139mmol/L (136-145) Potassium Level 3.1mmol/L (3.5-5.1) 2.6mmol/L (3.5-5.1) Chloride Level 99mmol/L (98-107) 102mmol/L (98-107) Carbon Dioxide Level 19mmol/L (21-32) 24mmol/L (21-32) Anion Gap 16 (6-14) 13 (6-14) Blood Urea Nitrogen 12mg/dL (8-26) 8mg/dL (8-26) Creatinine 0.9mg/dL (0.7-1.3) 0.9mg/dL (0.7-1.3) Estimated GFR (Cockcroft-Gault) 85.2 85.2 Glucose Level 87mg/dL (70-99) 102mg/dL (70-99) Calcium Level 8.0mg/dL (8.5-10.1) 8.1mg/dL (8.5-10.1) Clostridium difficile Toxin (PCR) Negative (Negative) White Blood Count 7.2x10^3/uL (4.0-11.0) 7.1x10^3/uL (4.0-11.0) Red Blood Count 3.69x10^6/uL (4.30-5.70) 3.74x10^6/uL (4.30-5.70) Hemoglobin 12.3g/dL (13.0-17.5) 12.2g/dL (13.0-17.5) Hematocrit 35.5% (39.0-53.0) 35.6% (39.0-53.0) Mean Corpuscular Volume 96fL (79-100) 95fL (79-100) Mean Corpuscular Hemoglobin 33pg (25-35) 33pg (25-35) Mean Corpuscular Hemoglobin Concent 35g/dL (31-37) 34g/dL (31-37) Red Cell Distribution Width 13.4% (11.5-14.5) 13.5% (11.5-14.5) Platelet Count 158x10^3/uL (140-400) 188x10^3/uL (140-400) Neutrophils (%) (Auto) 73% (31-73) 69% (31-73) Lymphocytes (%) (Auto) 10% (24-48) 13% (24-48) Monocytes (%) (Auto) 15% (0-9) 16% (0-9) Eosinophils (%) (Auto) 1% (0-3) 1% (0-3) Basophils (%) (Auto) 1% (0-3) 0% (0-3) Neutrophils # (Auto) 5.3x10^3uL (1.8-7.7) 4.9x10^3uL (1.8-7.7) Lymphocytes # (Auto) 0.8x10^3/uL (1.0-4.8) 0.9x10^3/uL (1.0-4.8) Monocytes # (Auto) 1.1x10^3/uL (0.0-1.1) 1.2x10^3/uL (0.0-1.1) Eosinophils # (Auto) 0.0x10^3/uL (0.0-0.7) 0.1x10^3/uL (0.0-0.7) Basophils # (Auto) 0.0x10^3/uL (0.0-0.2) 0.0x10^3/uL (0.0-0.2) Erythrocyte Sedimentation Rate 33 (0-15) Laboratory Tests Test 05/29/16 06:17 White Blood Count 7.1x10^3/uL (4.0-11.0) Red Blood Count 3.74x10^6/uL (4.30-5.70) Hemoglobin 12.2g/dL (13.0-17.5) Hematocrit 35.6% (39.0-53.0) Mean Corpuscular Volume 95fL (79-100) Mean Corpuscular Hemoglobin 33pg (25-35) Mean Corpuscular Hemoglobin Concent 34g/dL (31-37) Red Cell Distribution Width 13.5% (11.5-14.5) Platelet Count 188x10^3/uL (140-400) Neutrophils (%) (Auto) 69% (31-73) Lymphocytes (%) (Auto) 13% (24-48) Monocytes (%) (Auto) 16% (0-9) Eosinophils (%) (Auto) 1% (0-3) Basophils (%) (Auto) 0% (0-3) Neutrophils # (Auto) 4.9x10^3uL (1.8-7.7) Lymphocytes # (Auto) 0.9x10^3/uL (1.0-4.8) Monocytes # (Auto) 1.2x10^3/uL (0.0-1.1) Eosinophils # (Auto) 0.1x10^3/uL (0.0-0.7) Basophils # (Auto) 0.0x10^3/uL (0.0-0.2) Sodium Level 139mmol/L (136-145) Potassium Level 2.6mmol/L (3.5-5.1) Chloride Level 102mmol/L (98-107) Carbon Dioxide Level 24mmol/L (21-32) Anion Gap 13 (6-14) Blood Urea Nitrogen 8mg/dL (8-26) Creatinine 0.9mg/dL (0.7-1.3) Estimated GFR (Cockcroft-Gault) 85.2 Glucose Level 102mg/dL (70-99) Calcium Level 8.1mg/dL (8.5-10.1) Brief Hospital Course Mr. Cosme is a 65 old male, rather poor historian, [facility] [employer] resident, admitted for 3 days bec of watery diarrhea, c diff neg, ESR 33,. Colitis on CT. CO managed with GI, recent C s cope? outside facility, Assessed by service to have infectious colitis, agreed with sheila and robbi man, mikel OFI. Hemodynacmially stable,. Need to run its course Pt seen and examined dw RN and Oscar Brown Proc; none COnsults: GI Rx in chart Discharge Information Condition at Discharge: Improved, Stable Disposition/Orders: D/C to Home Scheduled Atenolol (Atenolol) 12.5 MG PO DAILY (Reported) Cholecalciferol (Vitamin D3) (Vitamin D3) 1 TAB PO DAILY (Reported) Cyclobenzaprine Hcl (Cyclobenzaprine Hcl) 5 MG PO BID (Reported) Docusate Sodium (Colace) 1 CAP PO BID Ergocalciferol (Vitamin D2) (Vitamin D2) 1 CAP PO WEEKLY (Reported) Ibuprofen (Ibuprofen) 600 MG PO BID (Reported) Lamotrigine (Lamotrigine) 150 MG PO BID (Reported) Lovastatin (Lovastatin) 20 MG PO HS (Reported) Sennosides (Senokot) 8.6 MG PO BID (Reported) Tamsulosin Hcl (Tamsulosin Hcl) 0.4 MG PO DAILY (Reported) MARTHA KLEIN MD May 29, 2016 11:36
[2016-05-29] MEDS: ENOXAPARIN 40 MG/0.4 ML SYRINGE. SQ SCH (13:12)
== END 2016-05-29 14:25 | disposition home or self-care (01) | DRG 371 ==
LOC: ER 02:55 → 5 SOUTH 05:11
PROVIDERS: ADMIT Internal Medicine Hematology & Oncology; ATTEND Internal Medicine Hematology & Oncology
DX: A04.9 Bacterial intestinal infection, unspecified (principal); N17.0 Acute kidney failure with tubular necrosis; N39.0 Urinary tract infection, site not specified; E78.00 Pure hypercholesterolemia, unspecified; E78.5 Hyperlipidemia, unspecified; E86.0 Dehydration; E87.6 Hypokalemia; I10 Essential (primary) hypertension; I69.320 Aphasia following cerebral infarction; J44.9 Chronic obstructive pulmonary disease, unspecified; M81.0 Age-related osteoporosis without current pathological fracture; Z87.11 Personal history of peptic ulcer disease; M19.90 Unspecified osteoarthritis, unspecified site; G89.29 Other chronic pain
CPT/HCPCS: 36415; 70450; 71010; 74020; 74176; 80048; 80053; 81001; 82274; 83690; 84484; 85007; 85027; 85610; 85651; 85730; 87040; 87086; 87186; 87324; 87641; 93005; 94250; 94760; 96361; 96374; 96375; G0481; J0690; J0696; J1650; J1956; J2405; J3010; J3480; J3490; J7030; 99285-25